=== PATIENT | male | born 1945 | race American Indian/Alaskan Native ===

== ENCOUNTER 2018-11-07 23:42 | Emergency (ER) | payer MEDICARE, BC ==
[~2018-11-07] VITALS: Ht 172.7 cm; Wt 103.9 kg
[~2018-11-07 23:42] MED LIST: ALPR.5 PO; AMLO5 PO; ANDROGEL1.25 GM TOP; ANDROGEL2.5 GM; ASPI81CH PO; Acidophilus La100 GM PO; B-121000 MC2 PO; BENZ100A PO; Bystolic5 MG PO; CEFP200 PO; CENTRUM SILVER1 EAC2 PO; CLOP75; CYCL10 PO; Calicum 500+D1 EACH PO; FENO160 PO; FISH1000 PO; FLUSAL2505 INH; GABA100 PO; HYDACE5325 PO; Hair, Skin & N1 EACH PO; IBUP600 PO; ISOMON20; LEVSOD50 PO; LISI5; Mirapex0.25 MG PO; OLME20-12. PO; OMEP20ER PO; OSTERA TABLET1 EACH PO; OXYB5ER PO; PANT20; PIME1CR TOP; PRAM.5 PO; Synthroid50 MCG; TRAZ50 PO; VENL150ER PO; [UNRECOGNIZED DRUG - OTHER] PO
== END 2018-11-08 02:00 | disposition home or self-care (01) ==
LOC: ER 23:42
DX: R04.0 Epistaxis (principal); Z88.0 Allergy status to penicillin; Z88.8 Allergy status to other drugs, medicaments and biological substances; Z79.899 Other long term (current) drug therapy; I10 Essential (primary) hypertension; I25.10 Atherosclerotic heart disease of native coronary artery without angina pectoris; Z87.891 Personal history of nicotine dependence
CPT/HCPCS: 99283

== ENCOUNTER 2019-03-09 09:05 | Emergency (ER) | payer MEDICARE, BC ==
[~2019-03-09] VITALS: Ht 172.7 cm; Wt 102.1 kg
[2019-03-09 09:34] LABS: BASOPHILS ABSOLUTE AUTO 0.06 K/mm3 (0.00-0.23); BASOPHILS PERCENT AUTO 1 % (0-2); EOSINOPHILS PERCENT AUTO 0 % (0-6); Hematocrit 37.2 % (37.0-53.0); Hemoglobin 12.1 g/dL (13.5-17.5); IMMATURE GRAN ABSOLUTE AUTO 0.01 K/mm3 (0.00-0.10); IMMATURE GRAN PERCENT AUTO 0 % (0-1); LYMPHOCYTES ABSOLUTE AUTO 1.44 K/mm3 (0.84-5.20); LYMPHOCYTES PERCENT AUTO 22 % (21-46); MONOCYTES PERCENT AUTO 11 % (4-13); Mean Corpuscular HGB 30.5 pg (26.0-34.0); Mean Corpuscular HGB Conc 32.5 g/dL (31.5-36.5); Mean Corpuscular Volume 94 fL (80-100); Mean Platelet Volume 10.4 fL (9.1-12.4); NEUTROPHILS ABSOLUTE AUTO 4.22 K/mm3 (1.96-9.15); NEUTROPHILS PERCENT AUTO 66 % (41-73); Platelet Count 113 K/mm3 (150-400); RDW Coefficient Variation 12.4 % (11.7-14.2); Red Blood Cell Count 3.97 M/mm3 (4.30-5.90); White Blood Cell Count 6.43 K/mm3 (4.00-11.30)
[2019-03-09 09:48] LABS: Alanine Aminotransfer (ALT/SGP 22 U/L (12-78); Albumin, Blood 3.4 g/dL (3.4-5.0); Alk Phos 79 U/L (50-136); Anion Gap 2 mmol/L (6-16); Aspartate Aminotrans (AST/SGOT 15 U/L (12-37); Bilirubin, Total 0.3 mg/dL (0.1-1.0); Blood Urea Nitrogen 15 mg/dL (8-24); Bun/Creatinine Ratio 18.7 (12.0-20.0); CO2, Blood 32 mmol/L (21-32); Chloride, Blood 106 mmol/L (98-108); Globulin, Blood 3.4 g/dL (2.2-4.0); Glomerular Filtration Rate >60 (60-); Glucose, Blood 175 mg/dL (70-99); Sodium, Blood 140 mmol/L (136-145); Total Protein, Blood 6.8 g/dL (6.4-8.2); Troponin I <0.015 ng/mL (0.000-0.040)
[2019-03-09] MEDS ORDERED: MAGNESIUM OXID500 MG PO (10:57)
== END 2019-03-09 11:56 | disposition home or self-care (01) ==
LOC: ER 09:05
PROVIDERS: Emergency Medicine
DX: R00.2 Palpitations (principal); E83.42 Hypomagnesemia; I10 Essential (primary) hypertension; I25.10 Atherosclerotic heart disease of native coronary artery without angina pectoris; Z87.891 Personal history of nicotine dependence; Z88.0 Allergy status to penicillin; Z88.8 Allergy status to other drugs, medicaments and biological substances; Z79.899 Other long term (current) drug therapy; Z79.02 Long term (current) use of antithrombotics/antiplatelets
CPT/HCPCS: 71046; 80053; 83735; 84484; 85025; 93005; 93010; 93225; 93226; 96365; 99285-25; J3475

== ENCOUNTER 2019-05-08 19:12 | Observation (INO) | payer MEDICARE, BC ==
[~2019-05-08] VITALS: Ht 172.7 cm; Wt 100.0 kg
[~2019-05-08 19:12] MED LIST changes: +MAGNESIUM OXID500 MG PO
[2019-05-08 20:04] LABS: BASOPHILS ABSOLUTE AUTO 0.06 K/mm3 (0.00-0.23); BASOPHILS PERCENT AUTO 1 % (0-2); EOSINOPHILS PERCENT AUTO 0 % (0-6); Hematocrit 40.4 % (37.0-53.0); Hemoglobin 13.1 g/dL (13.5-17.5); IMMATURE GRAN ABSOLUTE AUTO 0.06 K/mm3 (0.00-0.10); IMMATURE GRAN PERCENT AUTO 1 % (0-1); LYMPHOCYTES ABSOLUTE AUTO 1.47 K/mm3 (0.84-5.20); LYMPHOCYTES PERCENT AUTO 19 % (21-46); MONOCYTES ABSOLUTE AUTO 0.58 K/mm3 (0.16-1.47); MONOCYTES PERCENT AUTO 8 % (4-13); Mean Corpuscular HGB 31.3 pg (26.0-34.0); Mean Corpuscular HGB Conc 32.4 g/dL (31.5-36.5); Mean Corpuscular Volume 97 fL (80-100); Mean Platelet Volume 10.3 fL (9.1-12.4); NEUTROPHILS ABSOLUTE AUTO 5.46 K/mm3 (1.96-9.15); NEUTROPHILS PERCENT AUTO 72 % (41-73); Platelet Count 113 K/mm3 (150-400); RDW Coefficient Variation 12.3 % (11.7-14.2); RDW Standard Deviation 43.5 fL (35.1-46.3); Red Blood Cell Count 4.18 M/mm3 (4.30-5.90); White Blood Cell Count 7.63 K/mm3 (4.00-11.30)
[2019-05-08 20:16] LABS: International Normalized Ratio 0.98; Prothrombin Time Results 10.4 Sec (9.7-11.5)
[2019-05-08 20:22] LABS: Alanine Aminotransfer (ALT/SGP 25 U/L (12-78); Albumin, Blood 3.8 g/dL (3.4-5.0); Albumin/Globulin Ratio 1.1 (0.8-1.8); Alk Phos 79 U/L (50-136); Anion Gap 5 mmol/L (6-16); Aspartate Aminotrans (AST/SGOT 17 U/L (12-37); Bilirubin, Total 0.4 mg/dL (0.1-1.0); Blood Urea Nitrogen 28 mg/dL (8-24); Bun/Creatinine Ratio 27.2 (12.0-20.0); CO2, Blood 26 mmol/L (21-32); Calcium, Blood 8.9 mg/dL (8.5-10.1); Chloride, Blood 107 mmol/L (98-108); Creatinine, Blood 1.03 mg/dL (0.60-1.20); Globulin, Blood 3.6 g/dL (2.2-4.0); Glomerular Filtration Rate >60 (60-); Glucose, Blood 182 mg/dL (70-99); Potassium, Blood 4.5 mmol/L (3.5-5.5); Sodium, Blood 138 mmol/L (136-145); Total Protein, Blood 7.4 g/dL (6.4-8.2)
--- NOTE | 2019-05-09 04:06 | NUR ---
SHIFT SUMMARY PT ARRIVED TO ROOM IN NO DISTRESS. PT HAS NO ISSUES OR COMPLAINTS. PT HAS NO NOTED NEURO DEFICITS DURING ASSESSMENT. PT IS CURRENTLY SLEEPING W/ CPAP AND BREATHING EASY. CALL LIGHT IN REACH.
[2019-05-09 05:05] LABS: BASOPHILS ABSOLUTE AUTO 0.04 K/mm3 (0.00-0.23); BASOPHILS PERCENT AUTO 1 % (0-2); EOSINOPHILS PERCENT AUTO 0 % (0-6); Hematocrit 37.2 % (37.0-53.0); Hemoglobin 12.1 g/dL (13.5-17.5); IMMATURE GRAN ABSOLUTE AUTO 0.05 K/mm3 (0.00-0.10); IMMATURE GRAN PERCENT AUTO 1 % (0-1); LYMPHOCYTES ABSOLUTE AUTO 1.92 K/mm3 (0.84-5.20); LYMPHOCYTES PERCENT AUTO 28 % (21-46); MONOCYTES ABSOLUTE AUTO 0.65 K/mm3 (0.16-1.47); MONOCYTES PERCENT AUTO 10 % (4-13); Mean Corpuscular HGB 30.3 pg (26.0-34.0); Mean Corpuscular HGB Conc 32.5 g/dL (31.5-36.5); Mean Platelet Volume 10.4 fL (9.1-12.4); NEUTROPHILS ABSOLUTE AUTO 4.18 K/mm3 (1.96-9.15); NEUTROPHILS PERCENT AUTO 61 % (41-73); Platelet Count 96 K/mm3 (150-400); RDW Coefficient Variation 12.3 % (11.7-14.2); RDW Standard Deviation 42.3 fL (35.1-46.3); Red Blood Cell Count 3.99 M/mm3 (4.30-5.90); White Blood Cell Count 6.84 K/mm3 (4.00-11.30)
[2019-05-09 05:15] LABS: Mean Corpuscular Volume 93 fL (80-100)
[2019-05-09 05:26] LABS: Anion Gap 6 mmol/L (6-16); Blood Urea Nitrogen 28 mg/dL (8-24); Bun/Creatinine Ratio 25.9 (12.0-20.0); CHOL/HDL RATIO 4.9; CO2, Blood 27 mmol/L (21-32); Calcium, Blood 8.8 mg/dL (8.5-10.1); Chloride, Blood 108 mmol/L (98-108); Cholesterol 161 mg/dL (50-200); Creatinine, Blood 1.08 mg/dL (0.60-1.20); Glomerular Filtration Rate >60 (60-); Glucose, Blood 115 mg/dL (70-99); HDL Cholesterol 33 mg/dL (>39); LDL/HDL RATIO 2.2; Low Density Lipoprotein Chol 74 mg/dL (0-110); Potassium, Blood 3.8 mmol/L (3.5-5.5); Sodium, Blood 141 mmol/L (136-145); Triglycerides 271 mg/dL (30-160); Very Low Density Lipoprot Chol 54 mg/dL (6-32)
[2019-05-09] MEDS ORDERED: ATOR40TA PO (12:12)
== END 2019-05-09 12:55 | disposition home or self-care (01) ==
LOC: ER 19:12 → MEDS 19:13 → ENPENDDIS 05-09 12:45 → MEDS 05-09 12:55
PROVIDERS: Nurse Practitioner Acute Care; Physician Assistant; ADMIT Hospitalist
DX: G45.9 Transient cerebral ischemic attack, unspecified (principal); I10 Essential (primary) hypertension; I25.10 Atherosclerotic heart disease of native coronary artery without angina pectoris; J43.9 Emphysema, unspecified; E78.5 Hyperlipidemia, unspecified; E11.9 Type 2 diabetes mellitus without complications; J61 Pneumoconiosis due to asbestos and other mineral fibers; E03.9 Hypothyroidism, unspecified; Z90.49 Acquired absence of other specified parts of digestive tract; Z96.642 Presence of left artificial hip joint; Z87.891 Personal history of nicotine dependence; Z88.0 Allergy status to penicillin; Z88.6 Allergy status to analgesic agent; Z79.02 Long term (current) use of antithrombotics/antiplatelets; Z79.899 Other long term (current) drug therapy
CPT/HCPCS: 36415; 70450; 70496; 70498; 70551; 80048; 80053; 80061; 82947; 85025; 85610; 93005; 93010; 94660; 94762; 96374; 97110; 97161; 99285-25; C9113; G0378; Q9967

== ENCOUNTER 2019-06-17 05:40 | Emergency (ER) | payer MEDICARE, BC ==
[~2019-06-17] VITALS: Ht 172.7 cm; Wt 99.8 kg
[~2019-06-17 05:40] MED LIST changes: +ATOR40TA PO
[2019-06-17 05:58] LABS: BASOPHILS ABSOLUTE AUTO 0.06 K/mm3 (0.00-0.23); BASOPHILS PERCENT AUTO 1 % (0-2); EOSINOPHILS PERCENT AUTO 0 % (0-6); Hematocrit 38.5 % (37.0-53.0); Hemoglobin 12.7 g/dL (13.5-17.5); IMMATURE GRAN ABSOLUTE AUTO 0.04 K/mm3 (0.00-0.10); IMMATURE GRAN PERCENT AUTO 1 % (0-1); LYMPHOCYTES ABSOLUTE AUTO 1.87 K/mm3 (0.84-5.20); LYMPHOCYTES PERCENT AUTO 24 % (21-46); MONOCYTES ABSOLUTE AUTO 0.64 K/mm3 (0.16-1.47); MONOCYTES PERCENT AUTO 8 % (4-13); Mean Corpuscular HGB 30.7 pg (26.0-34.0); Mean Corpuscular Volume 93 fL (80-100); Mean Platelet Volume 10.1 fL (9.1-12.4); NEUTROPHILS ABSOLUTE AUTO 5.28 K/mm3 (1.96-9.15); NEUTROPHILS PERCENT AUTO 67 % (41-73); Platelet Count 119 K/mm3 (150-400); RDW Coefficient Variation 12.4 % (11.7-14.2); RDW Standard Deviation 42.7 fL (35.1-46.3); Red Blood Cell Count 4.14 M/mm3 (4.30-5.90); White Blood Cell Count 7.89 K/mm3 (4.00-11.30)
[2019-06-17] MEDS ORDERED: ESBRIET801 MG PO (05:59)
[2019-06-17] MEDS ORDERED: GABA300 PO (06:00)
[2019-06-17] MEDS ORDERED: METF500 PO (06:01)
[2019-06-17] MEDS ORDERED: NEBI10 PO (06:01)
[2019-06-17] MEDS ORDERED: OLMESARTAN-HCT1 EACH PO (06:02)
[2019-06-17] MEDS ORDERED: CLOP75 PO (06:03)
[2019-06-17] MEDS ORDERED: EUTHYROX100 MCG PO (06:04)
[2019-06-17] MEDS ORDERED: PANT40 PO (06:04)
[2019-06-17] MEDS ORDERED: HYDCOR10 PO (06:05)
[2019-06-17] MEDS ORDERED: TRAZ50 PO (06:06)
[2019-06-17] MEDS ORDERED: ATOR20 PO (06:06)
[2019-06-17] MEDS ORDERED: PRAMIPEXOLE D0.25 MG PO (06:07)
[2019-06-17] MEDS ORDERED: HYDR1TAB94 PO (06:07)
[2019-06-17] MEDS ORDERED: Ventolin/Prove6.7 GM INH (06:09)
[2019-06-17] MEDS ORDERED: ANORO ELLIPTA1 EACH INH (06:09)
[2019-06-17] MEDS ORDERED: Vitamin D2000 UNIT PO (06:09)
[2019-06-17 06:21] LABS: Alanine Aminotransfer (ALT/SGP 44 U/L (12-78); Albumin, Blood 3.5 g/dL (3.4-5.0); Alk Phos 96 U/L (50-136); Anion Gap 4 mmol/L (6-16); Aspartate Aminotrans (AST/SGOT 18 U/L (12-37); Bilirubin, Total 0.3 mg/dL (0.1-1.0); Blood Urea Nitrogen 23 mg/dL (8-24); Bun/Creatinine Ratio 24.6 (12.0-20.0); CO2, Blood 29 mmol/L (21-32); Calcium, Blood 8.6 mg/dL (8.5-10.1); Chloride, Blood 106 mmol/L (98-108); Creatinine, Blood 0.93 mg/dL (0.60-1.20); Globulin, Blood 3.6 g/dL (2.2-4.0); Glomerular Filtration Rate >60 (60-); Glucose, Blood 260 mg/dL (70-99); Magnesium, Blood 1.5 mg/dL (1.6-2.4); Potassium, Blood 3.7 mmol/L (3.5-5.5); Sodium, Blood 139 mmol/L (136-145); Total Protein, Blood 7.1 g/dL (6.4-8.2); Troponin I <0.015 ng/mL (0.000-0.040)
[2019-06-17 07:42] LABS: Source, Urine Voided
[2019-06-17 07:45] LABS: Bilirubin, Urine Neg (Neg); Blood, Urine 1+ (Neg); Glucose Qualitative, Urine 3+ (Neg); Ketones, Urine Neg (Neg); Leukocyte Esterase, Urine 3+ (Neg); Nitrite, Urine Pos (Neg); Protein, Urine 2+ (Neg); Urobilinogen, Urine NORM (Normal)
[2019-06-17 07:54] LABS: Appearance, Urine Cloudy (Clear); Color, Urine Yellow (P-Yellow)
[2019-06-17 07:56] LABS: White Blood Cells, Urine 25-50 /hpf (0-5)
[2019-06-17 07:57] LABS: Bacteria Many /hpf; Squamous Epithelial Cells Rare /hpf (Few); Transitional Epithelial Cells Few /hpf (0-Rare)
[2019-06-17 07:58] LABS: Creatine Kinase MB Index 1.7 (0.0-4.0)
[2019-06-17 08:00] LABS: Thyroid Stimulating Hormone 3.58 uIU/mL (0.360-4.800)
[2019-06-17] MEDS ORDERED: CEFD300 PO (10:31)
== END 2019-06-17 10:45 | disposition home or self-care (01) ==
LOC: ER 05:40
PROVIDERS: Emergency Medicine
DX: R55 Syncope and collapse (principal); J44.9 Chronic obstructive pulmonary disease, unspecified; N39.0 Urinary tract infection, site not specified; R53.1 Weakness; I10 Essential (primary) hypertension; I25.10 Atherosclerotic heart disease of native coronary artery without angina pectoris; Z99.81 Dependence on supplemental oxygen; Z88.0 Allergy status to penicillin; Z88.8 Allergy status to other drugs, medicaments and biological substances; Z79.84 Long term (current) use of oral hypoglycemic drugs; Z79.899 Other long term (current) drug therapy; Z87.891 Personal history of nicotine dependence
CPT/HCPCS: 36415; 71046; 80053; 81001; 82550; 82553; 83735; 83880; 84443; 84484; 85025; 87077; 87086; 87186; 93005; 93010; 96365; 99284-25; J0696

== ENCOUNTER → 2019-08-15 | Outpatient (CLI) | payer MEDICARE, BC ==
[~2019-08-15] MED LIST changes: +ANORO ELLIPTA1 EACH INH; +ATOR20 PO; +CEFD300 PO; +CLOP75 PO; +ESBRIET801 MG PO; +EUTHYROX100 MCG PO; +GABA300 PO; +HYDCOR10 PO; +HYDR1TAB94 PO; +METF500 PO; +NEBI10 PO; +OLMESARTAN-HCT1 EACH PO; +PANT40 PO; +PRAMIPEXOLE D0.25 MG PO; +Ventolin/Prove6.7 GM INH; +Vitamin D2000 UNIT PO
[2019-08-15 16:26] LABS: Source, Urine Clean Catch
[2019-08-15 17:26] LABS: Bilirubin, Urine Neg (Neg); Blood, Urine 4+ (Neg); Glucose Qualitative, Urine Neg (Neg); Ketones, Urine 1+ (Neg); Leukocyte Esterase, Urine 3+ (Neg); Nitrite, Urine Neg (Neg); Protein, Urine 3+ (Neg); Urobilinogen, Urine NORM (Normal)
[2019-08-15 17:50] LABS: Appearance, Urine Cloudy (Clear); Color, Urine Yellow (P-Yellow)
[2019-08-15 17:51] LABS: Red Blood Cells, Urine 25-50 /hpf (0-2); White Blood Cells, Urine TNTC /hpf (0-5); Yeast/Fungi Urine Many /hpf
[2019-08-15 17:52] LABS: Bacteria Many /hpf; Squamous Epithelial Cells Few /hpf (Few)
== END | disposition home or self-care (01) ==
LOC: OLS 16:25 → LAB SHORT 16:25 → LAB FUT 06-27 18:35
PROVIDERS: Urology
DX: N39.0 Urinary tract infection, site not specified (principal)
CPT/HCPCS: 81001

== ENCOUNTER 2020-04-28 10:09 | Emergency (ER) | payer MEDICARE, BC ==
[~2020-04-28] VITALS: Ht 172.7 cm; Wt 95.2 kg
[2020-04-28 10:48] LABS: BASOPHILS ABSOLUTE AUTO 0.04 K/mm3 (0.00-0.23); BASOPHILS PERCENT AUTO 1 % (0-2); EOSINOPHILS PERCENT AUTO 0 % (0-6); Hematocrit 36.1 % (37.0-53.0); Hemoglobin 11.5 g/dL (13.5-17.5); IMMATURE GRAN ABSOLUTE AUTO 0.08 K/mm3 (0.00-0.10); IMMATURE GRAN PERCENT AUTO 1 % (0-1); LYMPHOCYTES ABSOLUTE AUTO 1.55 K/mm3 (0.84-5.20); LYMPHOCYTES PERCENT AUTO 19 % (21-46); MONOCYTES ABSOLUTE AUTO 0.66 K/mm3 (0.16-1.47); MONOCYTES PERCENT AUTO 8 % (4-13); Mean Corpuscular HGB 29.9 pg (26.0-34.0); Mean Corpuscular HGB Conc 31.9 g/dL (31.5-36.5); Mean Corpuscular Volume 94 fL (80-100); Mean Platelet Volume 9.5 fL (9.1-12.4); NEUTROPHILS ABSOLUTE AUTO 5.66 K/mm3 (1.96-9.15); NEUTROPHILS PERCENT AUTO 71 % (41-73); Platelet Count 105 K/mm3 (150-400); RDW Coefficient Variation 12.4 % (11.7-14.2); RDW Standard Deviation 42.4 fL (35.1-46.3); Red Blood Cell Count 3.85 M/mm3 (4.30-5.90); White Blood Cell Count 7.99 K/mm3 (4.00-11.30)
[2020-04-28 11:18] LABS: Alanine Aminotransfer (ALT/SGP 28 U/L (12-78); Albumin, Blood 3.4 g/dL (3.4-5.0); Albumin/Globulin Ratio 1.1 (0.8-1.8); Alk Phos 89 U/L (50-136); Anion Gap 4 mmol/L (6-16); Aspartate Aminotrans (AST/SGOT 26 U/L (12-37); Bilirubin, Total 0.2 mg/dL (0.1-1.0); Blood Urea Nitrogen 24 mg/dL (8-24); Bun/Creatinine Ratio 23.3 (12.0-20.0); CO2, Blood 32 mmol/L (21-32); Calcium, Blood 8.8 mg/dL (8.5-10.1); Chloride, Blood 107 mmol/L (98-108); Creatinine, Blood 1.03 mg/dL (0.60-1.20); Globulin, Blood 3.2 g/dL (2.2-4.0); Glomerular Filtration Rate >60 (60-); Glucose, Blood 90 mg/dL (70-99); Potassium, Blood 4.3 mmol/L (3.5-5.5); Sodium, Blood 143 mmol/L (136-145); Total Protein, Blood 6.6 g/dL (6.4-8.2); Troponin I <0.015 ng/mL (0.000-0.040)
== END 2020-04-28 14:25 | disposition home or self-care (01) ==
LOC: ER 10:09
PROVIDERS: Emergency Medicine
DX: R53.1 Weakness (principal); J84.10 Pulmonary fibrosis, unspecified; I10 Essential (primary) hypertension; I25.10 Atherosclerotic heart disease of native coronary artery without angina pectoris; F43.9 Reaction to severe stress, unspecified; Z79.84 Long term (current) use of oral hypoglycemic drugs; Z79.02 Long term (current) use of antithrombotics/antiplatelets; Z88.0 Allergy status to penicillin; Z88.6 Allergy status to analgesic agent; Z79.899 Other long term (current) drug therapy; Z87.891 Personal history of nicotine dependence
CPT/HCPCS: 36415; 71046; 80053; 84484; 85025; 93005; 93010; 99285-25

== ENCOUNTER → 2020-05-05 | Outpatient (CLI) | payer MEDICARE, BC ==
[2020-05-07 22:42] LABS: Stool Occult Bld Immuno 1 Negative (NEGATIVE)
== END ==
LOC: LAB 16:30 → LAB SHORT 16:30
PROVIDERS: Family Medicine
DX: D64.9 Anemia, unspecified (principal)
CPT/HCPCS: 82274

== ENCOUNTER 2021-01-16 02:32 | Inpatient (IN) | payer MEDICARE, BC ==
[~2021-01-16] VITALS: Ht 172.7 cm; Wt 96.2 kg
[~2021-01-16 02:32] MED LIST changes: -CLOP75; -ESBRIET801 MG PO; -METF500 PO; -PRAMIPEXOLE D0.25 MG PO; -VENL150ER PO
[2021-01-16 03:00] LABS: Source, Urine Clean Catch
[2021-01-16 03:02] LABS: Bilirubin, Urine Neg (Neg); Blood, Urine 3+ (Neg); Glucose Qualitative, Urine 4+ (Neg); Ketones, Urine Neg (Neg); Leukocyte Esterase, Urine 1+ (Neg); Nitrite, Urine Pos (Neg); Protein, Urine 4+ (Neg); Specific Gravity, Urine 1.015 (1.003-1.022); Urobilinogen, Urine NORM (Normal)
[2021-01-16 03:02] LABS: BASOPHILS ABSOLUTE AUTO 0.03 K/mm3 (0.00-0.23); BASOPHILS PERCENT AUTO 0 % (0-2); EOSINOPHILS PERCENT AUTO 0 % (0-6); Hematocrit 42.4 % (37.0-53.0); Hemoglobin 13.6 g/dL (13.5-17.5); IMMATURE GRAN ABSOLUTE AUTO 0.04 K/mm3 (0.00-0.10); IMMATURE GRAN PERCENT AUTO 0 % (0-1); LYMPHOCYTES PERCENT AUTO 5 % (21-46); MONOCYTES ABSOLUTE AUTO 0.74 K/mm3 (0.16-1.47); MONOCYTES PERCENT AUTO 7 % (4-13); Mean Corpuscular HGB 28.9 pg (26.0-34.0); Mean Corpuscular HGB Conc 32.1 g/dL (31.5-36.5); Mean Corpuscular Volume 90 fL (80-100); Mean Platelet Volume 9.9 fL (9.1-12.4); NEUTROPHILS PERCENT AUTO 87 % (41-73); Platelet Count 103 K/mm3 (150-400); RDW Coefficient Variation 13.2 % (11.7-14.2); RDW Standard Deviation 43.6 fL (35.1-46.3); Red Blood Cell Count 4.71 M/mm3 (4.30-5.90); White Blood Cell Count 10.41 K/mm3 (4.00-11.30)
[2021-01-16 03:04] LABS: Appearance, Urine Clear (Clear); Color, Urine Yellow (P-Yellow)
[2021-01-16 03:08] LABS: White Blood Cells, Urine 50-100 /hpf (0-5)
[2021-01-16 03:09] LABS: Bacteria Many /hpf; Squamous Epithelial Cells Few /hpf (Few)
[2021-01-16 03:14] LABS: Alanine Aminotransfer (ALT/SGP 23 U/L (12-78); Albumin, Blood 3.6 g/dL (3.4-5.0); Albumin/Globulin Ratio 0.9 (0.8-1.8); Alk Phos 109 U/L (50-136); Anion Gap 3 mmol/L (6-16); Aspartate Aminotrans (AST/SGOT 11 U/L (12-37); Bilirubin, Total 0.4 mg/dL (0.1-1.0); Blood Urea Nitrogen 17 mg/dL (8-24); Bun/Creatinine Ratio 18.2 (12.0-20.0); CO2, Blood 31 mmol/L (21-32); Calcium, Blood 9.3 mg/dL (8.5-10.1); Chloride, Blood 105 mmol/L (98-108); Creatinine, Blood 0.93 mg/dL (0.60-1.20); Globulin, Blood 4.1 g/dL (2.2-4.0); Glomerular Filtration Rate >60 (60-); Glucose, Blood 286 mg/dL (70-99); Potassium, Blood 4.1 mmol/L (3.5-5.5); Sodium, Blood 139 mmol/L (136-145); Total Protein, Blood 7.7 g/dL (6.4-8.2)
[2021-01-16] MEDS ORDERED: TAMSULOSIN HCL0.4 M1 PO (04:01)
[2021-01-16] MEDS ORDERED: METF500C PO (04:02)
[2021-01-16 05:08] LABS: SARS-Cov-2 (COVID-19) PCR, MMC NEGATIVE (NEGATIVE)
[2021-01-16] MEDS ORDERED: HYDCOR10 PO (11:50)
[2021-01-16] MEDS ORDERED: HYDR1TAB94 PO (14:53)
--- NOTE | 2021-01-16 16:48 | NUR ---
ADMISSION AND SHIFT SUMMARY PT ARRIVED TO UNIT @ APPROX 1335 VIA WHEELCHAIR, PT ABLE TO AMBULATE TO BED c MINIMAL ASSISTANCE. PT A&Ox3, FORGETFUL OF WHICH TOWN HE WAS IN BUT KNEW HE WAS IN A HOSPITAL. ADMIT COMPLETED, PRESENT AT THIS TIME TO HELP PROVIDE ACURATE INFORMATION. BED ALARM ON DUE TO FORGETFULNESS, PT HAS CALLED APPROPRIATELY SINCE ARRIVAL TO UNIT. LR RUNNING @ 75 ML/HR. DENIES ANY DISTRESS AT THIS TIME. STILL HAVING FREQUENT URINATION, NO EPISODES OF INONTINENCE. TO BRING IN HOME cPAP AND ADVANCE DIRECTIVE TOMORROW. PT IS CURRENTLY SLEEPING IN BED, WITH CALL LIGHT WITHIN REACH AND BED ALARM ON.
[2021-01-17 06:03] LABS: BASOPHILS ABSOLUTE AUTO 0.04 K/mm3 (0.00-0.23); BASOPHILS PERCENT AUTO 1 % (0-2); EOSINOPHILS PERCENT AUTO 0 % (0-6); Hematocrit 43.7 % (37.0-53.0); Hemoglobin 13.9 g/dL (13.5-17.5); IMMATURE GRAN ABSOLUTE AUTO 0.04 K/mm3 (0.00-0.10); IMMATURE GRAN PERCENT AUTO 1 % (0-1); LYMPHOCYTES ABSOLUTE AUTO 0.75 K/mm3 (0.84-5.20); LYMPHOCYTES PERCENT AUTO 9 % (21-46); MONOCYTES ABSOLUTE AUTO 0.64 K/mm3 (0.16-1.47); MONOCYTES PERCENT AUTO 7 % (4-13); Mean Corpuscular HGB 28.7 pg (26.0-34.0); Mean Corpuscular HGB Conc 31.8 g/dL (31.5-36.5); Mean Corpuscular Volume 90 fL (80-100); Mean Platelet Volume 10.2 fL (9.1-12.4); NEUTROPHILS ABSOLUTE AUTO 7.25 K/mm3 (1.96-9.15); NEUTROPHILS PERCENT AUTO 83 % (41-73); Platelet Count 98 K/mm3 (150-400); RDW Coefficient Variation 13.5 % (11.7-14.2); RDW Standard Deviation 45.1 fL (35.1-46.3); Red Blood Cell Count 4.84 M/mm3 (4.30-5.90); White Blood Cell Count 8.72 K/mm3 (4.00-11.30)
[2021-01-17 06:21] LABS: Alanine Aminotransfer (ALT/SGP 23 U/L (12-78); Albumin, Blood 3.3 g/dL (3.4-5.0); Albumin/Globulin Ratio 0.8 (0.8-1.8); Alk Phos 98 U/L (50-136); Anion Gap 6 mmol/L (6-16); Aspartate Aminotrans (AST/SGOT 14 U/L (12-37); Bilirubin, Total 0.5 mg/dL (0.1-1.0); Blood Urea Nitrogen 17 mg/dL (8-24); CO2, Blood 30 mmol/L (21-32); Calcium, Blood 9.2 mg/dL (8.5-10.1); Chloride, Blood 99 mmol/L (98-108); Creatinine, Blood 1.06 mg/dL (0.60-1.20); Globulin, Blood 4.3 g/dL (2.2-4.0); Glomerular Filtration Rate >60 (60-); Glucose, Blood 140 mg/dL (70-99); Magnesium, Blood 1.8 mg/dL (1.6-2.4); Phosphorus, Blood 2.5 mg/dL (2.5-4.9); Potassium, Blood 3.9 mmol/L (3.5-5.5); Sodium, Blood 135 mmol/L (136-145); Total Protein, Blood 7.6 g/dL (6.4-8.2)
--- NOTE | 2021-01-17 06:36 | NUR ---
PT RESTING IN BED, ORIENTED X4 MAKING NO COMPLAINTS AT THIS TIME. ONE TIME ORDER FOR TYLENOL RECEIVED ON NOC SHIFT TO TREAT HEAD ACHE. NO OTHER CHANGES NOTED. STAFF WILL CONTINUE TO MONITOR.
--- NOTE | 2021-01-17 17:37 | NUR ---
SHIFT SUMMARY PT DENIES ANY DISTRESS T/O SHIFT, A&Ox3, CALM AND COOPERATIVE c CARE. FEVER WAS NOTED THIS AM BUT IS NOW WNL W/O ANY PHARMALOGICAL INTERVENTIONS. POSSIBLE DC TOMORROW. BROUGHT IN PT HOME cPAP TODAY. VSS. PT IS STILL IMPULSIVE AND GETS UP OUT OF BED W/O ASSISTANCE. BED ALARM ON. PT IS CURRENTLY RESTING IN BED c CALL LIGHT WITHIN REACH.
--- NOTE | 2021-01-18 00:02 | NUR ---
AWAKE WATCHING TV. ASSISTED TO BATHROOM EARLIER TO VOID. IVF OF LR CONTINUSE AT 75 ML/HR. NO C/O PAIN. NO NOTED S/S OF ACUTE DISTRESS AT THIS TIME. O2 PER NC. CALL LIGHT IN REACH
--- NOTE | 2021-01-18 04:50 | NUR ---
MACHINE WOODWORKING SANDER SUMMARY AWAKE AT INTERVALS TO GO TO THE BATHROOM, AND WHEN IV PUMP AND O2 SAT PULSE OX BEEPING. IV SITE ASSESSED, ARM BOARD PLACED. AND INSTRUCTED TO TAKE DEEP BREATHS WHEN O2 ALARMED. O2 SATS BACK TO 90'S AND CALL LIGHT IN REACH. IVF INFUSING. SEE MAR FOR DETAILS.
[2021-01-18 10:00] LABS: Alanine Aminotransfer (ALT/SGP 24 U/L (12-78); Albumin, Blood 2.7 g/dL (3.4-5.0); Albumin/Globulin Ratio 0.8 (0.8-1.8); Alk Phos 72 U/L (50-136); Anion Gap 3 mmol/L (6-16); Aspartate Aminotrans (AST/SGOT 21 U/L (12-37); Bilirubin, Total 0.3 mg/dL (0.1-1.0); Blood Urea Nitrogen 15 mg/dL (8-24); Bun/Creatinine Ratio 17.8 (12.0-20.0); CO2, Blood 31 mmol/L (21-32); Calcium, Blood 8.4 mg/dL (8.5-10.1); Chloride, Blood 101 mmol/L (98-108); Creatinine, Blood 0.85 mg/dL (0.60-1.20); Globulin, Blood 3.5 g/dL (2.2-4.0); Glomerular Filtration Rate >60 (60-); Glucose, Blood 201 mg/dL (70-99); Potassium, Blood 3.8 mmol/L (3.5-5.5); Sodium, Blood 135 mmol/L (136-145); Total Protein, Blood 6.2 g/dL (6.4-8.2)
[2021-01-18] MEDS ORDERED: CEFD300 PO (15:27)
[2021-01-18] MEDS ORDERED: VISBIOME 112.51 EACH PO (15:28)
--- NOTE | 2021-01-18 16:15 | NUR ---
DISCHARGE MEDICATIONS AND INSTRUCTIONS EXPLAINED TO PATIENT AND PATIENT'S . THEY STATED UNDERSTANDING. PCP FOLLOW UP SCHEDULED. IV REMOVED WITHOUT ISSUE. BELONGINGS WITH PATIENT. PATIENT TRANSFERRED TO PRIVATE VEHICLE VIA WHEELCHAIR.
== END 2021-01-18 16:03 | disposition home or self-care (01) | DRG 871 ==
LOC: ER 02:32 → ERHOLD 03:41 → MEDS 13:34
PROVIDERS: Emergency Medicine; Hospitalist; Internal Medicine Endocrinology, Diabetes & Metabolism; ADMIT Family Medicine
DX: A41.51 Sepsis due to Escherichia coli [E. coli] (principal); G92 Toxic encephalopathy; Z16.10 Resistance to unspecified beta lactam antibiotics; Z16.23 Resistance to quinolones and fluoroquinolones; N39.0 Urinary tract infection, site not specified; E27.40 Unspecified adrenocortical insufficiency; I25.10 Atherosclerotic heart disease of native coronary artery without angina pectoris; Z20.822 Contact with and (suspected) exposure to COVID-19; D69.59 Other secondary thrombocytopenia; J84.112 Idiopathic pulmonary fibrosis; K21.9 Gastro-esophageal reflux disease without esophagitis; E03.9 Hypothyroidism, unspecified; E78.5 Hyperlipidemia, unspecified; Z96.642 Presence of left artificial hip joint; G47.33 Obstructive sleep apnea (adult) (pediatric); G89.29 Other chronic pain; E66.9 Obesity, unspecified; M48.00 Spinal stenosis, site unspecified; E83.42 Hypomagnesemia; E11.22 Type 2 diabetes mellitus with diabetic chronic kidney disease; D63.1 Anemia in chronic kidney disease; I12.9 Hypertensive chronic kidney disease with stage 1 through stage 4 chronic kidney disease, or unspecified chronic kidney disease; N18.9 Chronic kidney disease, unspecified; J43.9 Emphysema, unspecified; Z77.090 Contact with and (suspected) exposure to asbestos; Z87.891 Personal history of nicotine dependence; Z88.0 Allergy status to penicillin; Z88.6 Allergy status to analgesic agent; Z98.890 Other specified postprocedural states; Z79.02 Long term (current) use of antithrombotics/antiplatelets; Z79.899 Other long term (current) drug therapy; Z79.84 Long term (current) use of oral hypoglycemic drugs; Z90.89 Acquired absence of other organs; Z90.49 Acquired absence of other specified parts of digestive tract; Z68.36 Body mass index [BMI] 36.0-36.9, adult
CPT/HCPCS: 36415; 71045; 80053; 81001; 82947; 83605; 83735; 83880; 84100; 85025; 87040; 87077; 87086; 87186; 93005; 93010; 94660; 94762; 96365; 97110; 97116; 97162; 97166; 97530; 97535; 99285-25; A9270; J0696; J1650; J7120; U0004

== ENCOUNTER 2021-01-28 18:28 | Inpatient (IN) | payer MEDICARE, BC ==
[~2021-01-28] VITALS: Ht 172.7 cm; Wt 97.7 kg
[~2021-01-28 18:28] MED LIST changes: +METF500C PO; +TAMSULOSIN HCL0.4 M1 PO; +VISBIOME 112.51 EACH PO
[2021-01-28] MEDS ORDERED: OLME5TAB PO (19:03)
[2021-01-28 19:39] LABS: BASOPHILS ABSOLUTE AUTO 0.05 K/mm3 (0.00-0.23); BASOPHILS PERCENT AUTO 1 % (0-2); EOSINOPHILS PERCENT AUTO 0 % (0-6); Hemoglobin 11.4 g/dL (13.5-17.5); IMMATURE GRAN ABSOLUTE AUTO 0.09 K/mm3 (0.00-0.10); IMMATURE GRAN PERCENT AUTO 1 % (0-1); LYMPHOCYTES ABSOLUTE AUTO 1.31 K/mm3 (0.84-5.20); LYMPHOCYTES PERCENT AUTO 15 % (21-46); MONOCYTES ABSOLUTE AUTO 0.82 K/mm3 (0.16-1.47); MONOCYTES PERCENT AUTO 9 % (4-13); Mean Corpuscular HGB Conc 32.6 g/dL (31.5-36.5); Mean Corpuscular Volume 89 fL (80-100); NEUTROPHILS ABSOLUTE AUTO 6.69 K/mm3 (1.96-9.15); NEUTROPHILS PERCENT AUTO 75 % (41-73); RDW Coefficient Variation 13.4 % (11.7-14.2); RDW Standard Deviation 43.8 fL (35.1-46.3); Red Blood Cell Count 3.93 M/mm3 (4.30-5.90); White Blood Cell Count 8.96 K/mm3 (4.00-11.30)
[2021-01-28 19:42] LABS: Mean Platelet Volume 9.7 fL (9.1-12.4); Platelet Count 144 K/mm3 (150-400)
[2021-01-28 19:46] LABS: Alanine Aminotransfer (ALT/SGP 87 U/L (12-78); Albumin, Blood 3.2 g/dL (3.4-5.0); Alk Phos 150 U/L (50-136); Anion Gap 3 mmol/L (6-16); Aspartate Aminotrans (AST/SGOT 156 U/L (12-37); Blood Urea Nitrogen 22 mg/dL (8-24); Bun/Creatinine Ratio 23.3 (12.0-20.0); CO2, Blood 27 mmol/L (21-32); Calcium, Blood 8.9 mg/dL (8.5-10.1); Chloride, Blood 108 mmol/L (98-108); Creatinine, Blood 0.94 mg/dL (0.60-1.20); Globulin, Blood 3.3 g/dL (2.2-4.0); Glomerular Filtration Rate >60 (60-); Glucose, Blood 118 mg/dL (70-99); Potassium, Blood 4.6 mmol/L (3.5-5.5); Sodium, Blood 138 mmol/L (136-145); Total Protein, Blood 6.5 g/dL (6.4-8.2); Troponin I <0.015 ng/mL (0.000-0.040)
[2021-01-28] MEDS ORDERED: VENL150ER PO (21:42)
[2021-01-28] MEDS ORDERED: ESBRIET801 MG PO (21:43)
[2021-01-28] MEDS ORDERED: NEBI5 PO (21:44)
[2021-01-28] MEDS ORDERED: TESTOSTERONE75 G1 TOP (21:46)
[2021-01-28] MEDS ORDERED: ANORO ELLIPTA1 EAC1 INH (21:48)
[2021-01-28] MEDS ORDERED: PRAMIPEXOLE D0.25 M1 PO (21:49)
[2021-01-28] MEDS ORDERED: METF500C PO (22:20)
[2021-01-28] MEDS ORDERED: PRAMIPEXOLE D0.25 MG PO (22:21)
[2021-01-28] MEDS ORDERED: Hydrocortisone5 MG PO (22:23)
--- NOTE | 2021-01-29 04:58 | NUR ---
SHIFT SUMMARY: PATIENT WAS ADMITTED TO THE FLOOR FOR ACUTE PANCRETITIS. HE ARRIVED TO THE ER LAST NIGHT FOR PAIN IN THE EPIGASTRIC AREA. WAS GIVEN A GI COCKTAIL AND MORPHINE WHICH HELPED RELEIVE THE PAIN. HE WAS GIVEN DINNER DOWN IN THE ER PRIOR TO THE DIAGNOSIS BUT STILL HAS BEEN PAIN FREE SINCE THEM. AOX3, INDEPENDENT WITH THE CANE. NORMAL BM, NO N/V/D. MILD EDEMA IN THE LEGS. LS ARE CLEAR, OCCATIONAL COUGH AND USES 3 LITERS OF O2 WHICH IS HIS NORM. HAS GOOD APPETITE CONSTANTLY ASK FOR FOOD AND DRINKS BUT KNOWS HE CAN NOT HAVE ANYTHING RIGHT NOW. STATES HE GETS THIS PAIN OFF AND ON AND IT AWAYS GOES AWAY. LIPASE 2603, AST 156 ALT 87. NEGATIVE TROPONIN. VS WITH SLIGHT ELEVATION IN BP WHICH HE STATS IS HIS NORM. DENIED ANY ISSUES WHEN UP ON THE FLOOR. SLEEPING WELL. WILL REPORT TO DAYSHIFT. CALL LIGHT IN REACH.
[2021-01-29 07:24] LABS: Alanine Aminotransfer (ALT/SGP 215 U/L (12-78); Albumin, Blood 3.2 g/dL (3.4-5.0); Alk Phos 180 U/L (50-136); Anion Gap 3 mmol/L (6-16); Aspartate Aminotrans (AST/SGOT 238 U/L (12-37); Bilirubin, Total 1.1 mg/dL (0.1-1.0); Blood Urea Nitrogen 22 mg/dL (8-24); Bun/Creatinine Ratio 21.4 (12.0-20.0); CO2, Blood 30 mmol/L (21-32); Chloride, Blood 107 mmol/L (98-108); Creatinine, Blood 1.03 mg/dL (0.60-1.20); Globulin, Blood 3.3 g/dL (2.2-4.0); Glomerular Filtration Rate >60 (60-); Glucose, Blood 110 mg/dL (70-99); Potassium, Blood 4.5 mmol/L (3.5-5.5); Sodium, Blood 140 mmol/L (136-145); Total Protein, Blood 6.5 g/dL (6.4-8.2)
[2021-01-29 07:25] LABS: Troponin I <0.015 ng/mL (0.000-0.040)
--- NOTE | 2021-01-29 18:49 | NUR ---
PT REMAINS IND. IN ROOM MAKING NO COMPLIANTS AT THIS TIME. PT IS ALERT AND ORIENTED X4 AND TOLERATED CLEAR LIQ DIET FOR DINNER. STAFF WILL CONTINUE TO MONITOR.
--- NOTE | 2021-01-30 05:15 | NUR ---
SHIFT SUMMARY: AOX3, TOOK SHOWER LAST NIGHT INDEPENTENTLY. NO PAIN ENTIRE SHIFT. TOLERATING CLEAR LIQUIDS. ABDOMIN NON-TENDER. NO N/V/D. NO EDEMA, LS CLEAR. BP ELEVATED AT START OF SHIFT, MEDS GIVEN, BP NORMAL. DENIED ANY NEEDS ALL NIGHT, SLEPT WELL. DID PULL OUT IV ON ACCIDENT GOING TO BATHROOM, SEVERAL ATTEMPTS WERE MADE TO GET ONE. HE DID NOT WANT US TO TRY AGAIN WANTED TO WAIT TILL MORNING. NEW BAG OF FLUIDS WERE HUNG PRIOR TO THAT EVENT. NO ACUTE CHANGES HOPES TO GO HOME TODAY. CALL LIGHT IN REACH.
[2021-01-30 05:48] LABS: Alanine Aminotransfer (ALT/SGP 179 U/L (12-78); Albumin, Blood 2.9 g/dL (3.4-5.0); Albumin/Globulin Ratio 0.9 (0.8-1.8); Alk Phos 163 U/L (50-136); Anion Gap 2 mmol/L (6-16); Aspartate Aminotrans (AST/SGOT 93 U/L (12-37); Bilirubin, Total 0.4 mg/dL (0.1-1.0); Blood Urea Nitrogen 16 mg/dL (8-24); Bun/Creatinine Ratio 16.8 (12.0-20.0); CO2, Blood 32 mmol/L (21-32); Calcium, Blood 8.5 mg/dL (8.5-10.1); Chloride, Blood 109 mmol/L (98-108); Creatinine, Blood 0.95 mg/dL (0.60-1.20); Globulin, Blood 3.2 g/dL (2.2-4.0); Glomerular Filtration Rate >60 (60-); Glucose, Blood 100 mg/dL (70-99); Potassium, Blood 4.1 mmol/L (3.5-5.5); Sodium, Blood 143 mmol/L (136-145); Total Protein, Blood 6.1 g/dL (6.4-8.2)
[2021-01-30 06:04] LABS: C-REACTIVE PROTEIN, EXT RANGE < 2.900 mg/dL (0.000-0.300)
--- NOTE | 2021-01-30 11:33 | NUR ---
01/30/21- per chart review with Dr. Desai, pt is stable to discharge. Met with pt who reports that he was independent prior to coming into the hospital. Pt lives with his in a single story home with working utilities and has no issues returning home. He states there are 3 steps to get into the home. 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 [facility]A- [facility]
--- NOTE | 2021-01-30 17:00 | NUR ---
discharged home with family, reviewed stay, medication, dc instructions and follow up appointments, left in wc with staff pushing it down to s exit
[2021-01-31 07:10] LABS: HBSAG SCREEN Negative (Negative); HEP B CORE AB, TOT Negative (Negative); HEP C VIRUS AB <0.1 (0.0-0.9)
== END 2021-01-30 15:20 | disposition home or self-care (01) | DRG 948 ==
LOC: ER 18:28 → MEDS 21:43
PROVIDERS: Emergency Medicine; Internal Medicine; ADMIT Internal Medicine
DX: R74.01 Elevation of levels of liver transaminase levels (principal); E27.40 Unspecified adrenocortical insufficiency; R74.8 Abnormal levels of other serum enzymes; I10 Essential (primary) hypertension; I25.10 Atherosclerotic heart disease of native coronary artery without angina pectoris; E03.9 Hypothyroidism, unspecified; J84.10 Pulmonary fibrosis, unspecified; G47.33 Obstructive sleep apnea (adult) (pediatric); J61 Pneumoconiosis due to asbestos and other mineral fibers; D64.9 Anemia, unspecified; E11.9 Type 2 diabetes mellitus without complications; J43.9 Emphysema, unspecified; Z77.090 Contact with and (suspected) exposure to asbestos; E66.01 Morbid (severe) obesity due to excess calories; Z96.641 Presence of right artificial hip joint; Z68.31 Body mass index [BMI] 31.0-31.9, adult; Z99.89 Dependence on other enabling machines and devices; Z88.8 Allergy status to other drugs, medicaments and biological substances; Z88.0 Allergy status to penicillin; Z79.84 Long term (current) use of oral hypoglycemic drugs; Z79.899 Other long term (current) drug therapy; Z87.891 Personal history of nicotine dependence; Z90.49 Acquired absence of other specified parts of digestive tract; Z98.890 Other specified postprocedural states; Z79.02 Long term (current) use of antithrombotics/antiplatelets
CPT/HCPCS: 36415; 71045; 74181; 80053; 83036; 83690; 84484; 85025; 86140; 86317; 86704; 86708; 86803; 87340; 93005; 93010; 94640; 94760; 99285-25; A9270; G0378; J1650; J7030

== ENCOUNTER → 2021-03-24 | Outpatient (CLI) | payer MEDICARE, BC ==
[~2021-03-24] MED LIST changes: +ANORO ELLIPTA1 EAC1 INH; +ESBRIET801 MG PO; +Hydrocortisone5 MG PO; +NEBI5 PO; +OLME5TAB PO; +PRAMIPEXOLE D0.25 M1 PO; +PRAMIPEXOLE D0.25 MG PO; +TESTOSTERONE75 G1 TOP; +VENL150ER PO
== END ==
LOC: LAB 16:55 → LAB SHORT 16:55
DX: N39.0 Urinary tract infection, site not specified (principal)
CPT/HCPCS: 87086

== ENCOUNTER 2021-04-15 17:37 | Emergency (ER) | payer MEDICARE, BC ==
[~2021-04-15] VITALS: Ht 172.7 cm; Wt 93.9 kg
[2021-04-15 18:30] LABS: BASOPHILS ABSOLUTE AUTO 0.05 K/mm3 (0.00-0.23); BASOPHILS PERCENT AUTO 1 % (0-2); EOSINOPHILS PERCENT AUTO 0 % (0-6); Hematocrit 36.1 % (37.0-53.0); Hemoglobin 11.8 g/dL (13.5-17.5); IMMATURE GRAN ABSOLUTE AUTO 0.07 K/mm3 (0.00-0.10); IMMATURE GRAN PERCENT AUTO 1 % (0-1); LYMPHOCYTES PERCENT AUTO 13 % (21-46); MONOCYTES ABSOLUTE AUTO 0.43 K/mm3 (0.16-1.47); MONOCYTES PERCENT AUTO 6 % (4-13); Mean Corpuscular HGB 29.5 pg (26.0-34.0); Mean Corpuscular HGB Conc 32.7 g/dL (31.5-36.5); Mean Corpuscular Volume 90 fL (80-100); NEUTROPHILS ABSOLUTE AUTO 6.11 K/mm3 (1.96-9.15); NEUTROPHILS PERCENT AUTO 80 % (41-73); Platelet Count 142 K/mm3 (150-400); RDW Coefficient Variation 12.5 % (11.7-14.2); RDW Standard Deviation 41.2 fL (35.1-46.3); White Blood Cell Count 7.66 K/mm3 (4.00-11.30)
[2021-04-15 18:46] LABS: Alanine Aminotransfer (ALT/SGP 25 U/L (12-78); Albumin, Blood 2.8 g/dL (3.4-5.0); Albumin/Globulin Ratio 0.7 (0.8-1.8); Alk Phos 86 U/L (50-136); Anion Gap 5 mmol/L (6-16); Aspartate Aminotrans (AST/SGOT 16 U/L (12-37); Bilirubin, Total 0.3 mg/dL (0.1-1.0); Blood Urea Nitrogen 17 mg/dL (8-24); Bun/Creatinine Ratio 18.9 (12.0-20.0); CO2, Blood 28 mmol/L (21-32); Calcium, Blood 8.9 mg/dL (8.5-10.1); Chloride, Blood 106 mmol/L (98-108); Globulin, Blood 3.8 g/dL (2.2-4.0); Glomerular Filtration Rate >60 (60-); Glucose, Blood 245 mg/dL (70-99); Potassium, Blood 3.6 mmol/L (3.5-5.5); Sodium, Blood 139 mmol/L (136-145); Total Protein, Blood 6.6 g/dL (6.4-8.2); Troponin I <0.015 ng/mL (0.000-0.040)
[2021-04-15 20:57] LABS: SARS-Cov-2 (COVID-19) PCR, MMC NEGATIVE (NEGATIVE)
[2021-04-15] MEDS ORDERED: CEFP200 PO (22:54)
[2021-04-15] MEDS ORDERED: SPACE CHAMBER1 EACH XX (22:54)
== END 2021-04-15 23:27 | disposition home or self-care (01) ==
LOC: ER 17:37
PROVIDERS: Physician Assistant; Student in an Organized Health Care Education/Training Program
DX: J18.9 Pneumonia, unspecified organism (principal); Z20.822 Contact with and (suspected) exposure to COVID-19; Z88.0 Allergy status to penicillin; Z88.8 Allergy status to other drugs, medicaments and biological substances; Z79.899 Other long term (current) drug therapy; Z79.84 Long term (current) use of oral hypoglycemic drugs; I10 Essential (primary) hypertension; I25.10 Atherosclerotic heart disease of native coronary artery without angina pectoris; J43.9 Emphysema, unspecified
CPT/HCPCS: 36415; 71046; 71260; 80053; 82550; 83880; 84484; 85025; 85379; 93005; 93010; 94640; 94644; 99285-25; A9270; Q9967; U0004

== ENCOUNTER → 2021-05-28 | Outpatient (CLI) | payer MEDICARE, BC ==
[~2021-05-28] MED LIST changes: +SPACE CHAMBER1 EACH XX
== END | disposition home or self-care (01) ==
LOC: LAB SHORT 18:37 → LAB 18:37
DX: N39.0 Urinary tract infection, site not specified (principal)
CPT/HCPCS: 87077; 87086; 87186

== ENCOUNTER 2021-11-14 00:06 | Inpatient (IN) | payer MEDICARE, BC ==
[~2021-11-14] VITALS: Ht 172.7 cm; Wt 90.4 kg
[2021-11-14 00:18] LABS: BASOPHILS ABSOLUTE AUTO 0.08 K/mm3 (0.00-0.23); BASOPHILS PERCENT AUTO 1 % (0-2); EOSINOPHILS PERCENT AUTO 0 % (0-6); Hematocrit 41.9 % (37.0-53.0); Hemoglobin 13.4 g/dL (13.5-17.5); IMMATURE GRAN PERCENT AUTO 1 % (0-1); LYMPHOCYTES ABSOLUTE AUTO 3.79 K/mm3 (0.84-5.20); LYMPHOCYTES PERCENT AUTO 23 % (21-46); MONOCYTES ABSOLUTE AUTO 1.08 K/mm3 (0.16-1.47); MONOCYTES PERCENT AUTO 7 % (4-13); Mean Corpuscular HGB 29.1 pg (26.0-34.0); Mean Corpuscular Volume 91 fL (80-100); Mean Platelet Volume 9.5 fL (9.1-12.4); NEUTROPHILS ABSOLUTE AUTO 11.26 K/mm3 (1.96-9.15); NEUTROPHILS PERCENT AUTO 69 % (41-73); Platelet Count 188 K/mm3 (150-400); RDW Coefficient Variation 13.5 % (11.7-14.2); RDW Standard Deviation 44.2 fL (35.1-46.3); Red Blood Cell Count 4.61 M/mm3 (4.30-5.90); White Blood Cell Count 16.31 K/mm3 (4.00-11.30)
[2021-11-14 00:36] LABS: PCO2 Arterial 52.5 mmHg (35-45); PO2 Arterial 65.5 mmHg (80-100); pH Blood Arterial 7.39 (7.35-7.45)
[2021-11-14 00:36] LABS: Albumin, Blood 3.2 g/dL (3.4-5.0); Albumin/Globulin Ratio 0.8 (0.8-1.8); Bilirubin, Total 0.4 mg/dL (0.1-1.0); Bun/Creatinine Ratio 17.9 (12.0-20.0); Calcium, Blood 9.1 mg/dL (8.5-10.1); Creatinine, Blood 0.89 mg/dL (0.60-1.20); Globulin, Blood 3.9 g/dL (2.2-4.0); Potassium, Blood 3.9 mmol/L (3.5-5.5); Total Protein, Blood 7.1 g/dL (6.4-8.2)
[2021-11-14] MEDS ORDERED: HYDR1TAB94 PO (00:37)
[2021-11-14] MEDS ORDERED: Nitrostat0.3 MG SL (00:38)
[2021-11-14] MEDS ORDERED: ALEN70 PO (00:38)
[2021-11-14] MEDS ORDERED: CILO100 PO (00:39)
[2021-11-14] MEDS ORDERED: LISI5 PO (00:39)
[2021-11-14 04:57] LABS: BASOPHILS ABSOLUTE AUTO 0.03 K/mm3 (0.00-0.23); BASOPHILS PERCENT AUTO 0 % (0-2); EOSINOPHILS PERCENT AUTO 0 % (0-6); Hematocrit 38.2 % (37.0-53.0); Hemoglobin 12.2 g/dL (13.5-17.5); IMMATURE GRAN ABSOLUTE AUTO 0.07 K/mm3 (0.00-0.10); IMMATURE GRAN PERCENT AUTO 1 % (0-1); LYMPHOCYTES ABSOLUTE AUTO 0.22 K/mm3 (0.84-5.20); LYMPHOCYTES PERCENT AUTO 2 % (21-46); MONOCYTES PERCENT AUTO 4 % (4-13); Mean Corpuscular HGB 28.9 pg (26.0-34.0); Mean Corpuscular HGB Conc 31.9 g/dL (31.5-36.5); Mean Corpuscular Volume 91 fL (80-100); Mean Platelet Volume 10.2 fL (9.1-12.4); NEUTROPHILS ABSOLUTE AUTO 14.04 K/mm3 (1.96-9.15); NEUTROPHILS PERCENT AUTO 94 % (41-73); Platelet Count 141 K/mm3 (150-400); RDW Coefficient Variation 13.6 % (11.7-14.2); Red Blood Cell Count 4.22 M/mm3 (4.30-5.90); White Blood Cell Count 14.96 K/mm3 (4.00-11.30)
[2021-11-14 05:13] LABS: Anti-Xa UFH, PHA Monitoring <0.10 IU/mL; International Normalized Ratio 1.13; Prothrombin Time Results 11.8 Sec (9.7-11.5)
[2021-11-14 05:34] LABS: Alanine Aminotransfer (ALT/SGP 28 U/L (12-78); Albumin, Blood 3.1 g/dL (3.4-5.0); Albumin/Globulin Ratio 0.8 (0.8-1.8); Alk Phos 113 U/L (50-136); Anion Gap 9 mmol/L (6-16); Aspartate Aminotrans (AST/SGOT 19 U/L (12-37); Bilirubin, Total 0.4 mg/dL (0.1-1.0); Blood Urea Nitrogen 15 mg/dL (8-24); CO2, Blood 31 mmol/L (21-32); Calcium, Blood 8.7 mg/dL (8.5-10.1); Chloride, Blood 101 mmol/L (98-108); Cholesterol 127 mg/dL (50-200); Creatinine, Blood 0.83 mg/dL (0.60-1.20); Free Thyroxine 1.01 ng/dL (0.70-1.60); Globulin, Blood 3.7 g/dL (2.2-4.0); Glomerular Filtration Rate 91 (60-); Glucose, Blood 231 mg/dL (70-99); HDL Cholesterol 43 mg/dL (>39); LDL/HDL RATIO 1.6; Low Density Lipoprotein Chol 67 mg/dL (0-110); Potassium, Blood 3.6 mmol/L (3.5-5.5); Sodium, Blood 141 mmol/L (136-145); Thyroid Stimulating Hormone 0.761 uIU/mL (0.360-4.800); Total Protein, Blood 6.8 g/dL (6.4-8.2); Triglycerides 83 mg/dL (30-160); Very Low Density Lipoprot Chol 16 mg/dL (6-32)
--- NOTE | 2021-11-14 07:11 | NUR ---
SHIFT SUMMARY PATIENT ALERT AND ORIENTED. HAD NO COMPLAINTS OF PAIN. IS VERY SHORT OF BREATH. CALL LIGHT WITHIN REACH REPORT GIVEN TO ONCOMING RN.
--- NOTE | 2021-11-14 10:34 | NUR ---
PT HAS BEEN HAVING TROUBLE KEEPING HIS SATS UP. HE WAS SWITCHED FROM BIPAP TO NC THIS AM AND DE SATTED WHEN RESPIRATORY LEFT TO 78. THEN HE WAS SWITCHED TO HIGHFLOW AND DE SATTED AGAIN TO 73 WHEN SITTING UP AT THE EDGE OF THE BED. HE IS NOW ON 10L HIGHFLOW SITTING IN A RECLINER SATTING AT 92%. A COVID TEST WAS ORDERED AND DONE
[2021-11-14 11:53] LABS: Influenza A, PCR NEGATIVE (NEGATIVE); Influenza B, PCR NEGATIVE (NEGATIVE); Resp Syncytial Virus, PCR NEGATIVE (NEGATIVE); SARS-Cov-2 (COVID-19) PCR, MMC NEGATIVE (NEGATIVE)
--- NOTE | 2021-11-14 18:42 | NUR ---
SHIFT SUMMARY SEE OTHER NOTES FOR PTS RESPIRATORY CHANGES TODAY. PT HAS BEEN RESTING COMFORTABLY ON 10L HIGHFLOW AT 92% WITH DESATS WHEN STANDING UP OR MOVING TO CHAIR. HE IS FAIRLY FORGETFUL, WHICH HIS SAYS IS NORMAL. SHE ALSO LET ME KNOW THAT HES NORMALLY ON 5L OF O2 AT HOME EVEN THOUGH HE SAYS HE IS ON 3L. HIS HAS FORGOTTEN TO BRING IN HIS LUNG MEDICATION ALL DAY TODAY DESPITE REMINDERS. THIS RN CALLED PHARAM TO SEE IF THERE WAS A SUBSTITUTE DRUG TO BE GIVEN AND THERE WAS NONE. WAS ENCOURAGE TO BRING IT TOMORROW. HE COMPLETED THE FIRST PART OF HIS STRESS TEST TODAY. AND WILL BE NO CAFFIENE AFTER 8 AND NO FOOD AFTER 12. HEPARIN DRIP IN STILL RUNNING AT ORIGINAL RATE. WILL CONTINUE TO MONITOR.
--- NOTE | 2021-11-15 06:15 | NUR ---
SHIFT SUMMARY PATIENT ALERT AND ORIENTED X3. HAD NO COMPLAINTS OF PAIN. BECOMES SHORT OF BREATH AND DESATS EASILY UPON EXERTION. NO ACUTE ISSUES NOTED OVERNIGHT. CALL LIGHT WITHIN REACH. REPORT GIVEN TO ONCOMING RN.
[2021-11-15 08:01] LABS: BASOPHILS ABSOLUTE AUTO 0.02 K/mm3 (0.00-0.23); BASOPHILS PERCENT AUTO 0 % (0-2); EOSINOPHILS PERCENT AUTO 0 % (0-6); Hematocrit 36.5 % (37.0-53.0); Hemoglobin 11.5 g/dL (13.5-17.5); IMMATURE GRAN ABSOLUTE AUTO 0.03 K/mm3 (0.00-0.10); IMMATURE GRAN PERCENT AUTO 0 % (0-1); LYMPHOCYTES PERCENT AUTO 7 % (21-46); MONOCYTES ABSOLUTE AUTO 0.83 K/mm3 (0.16-1.47); MONOCYTES PERCENT AUTO 5 % (4-13); Mean Corpuscular HGB 29.1 pg (26.0-34.0); Mean Corpuscular HGB Conc 31.5 g/dL (31.5-36.5); Mean Corpuscular Volume 92 fL (80-100); Mean Platelet Volume 9.9 fL (9.1-12.4); NEUTROPHILS ABSOLUTE AUTO 13.28 K/mm3 (1.96-9.15); NEUTROPHILS PERCENT AUTO 87 % (41-73); Platelet Count 129 K/mm3 (150-400); RDW Coefficient Variation 13.6 % (11.7-14.2); Red Blood Cell Count 3.95 M/mm3 (4.30-5.90); White Blood Cell Count 15.26 K/mm3 (4.00-11.30)
[2021-11-15 08:14] LABS: Albumin, Blood 2.8 g/dL (3.4-5.0); Albumin/Globulin Ratio 0.8 (0.8-1.8); Bilirubin, Total 0.6 mg/dL (0.1-1.0); Bun/Creatinine Ratio 27.4 (12.0-20.0); Calcium, Blood 8.7 mg/dL (8.5-10.1); Creatinine, Blood 0.95 mg/dL (0.60-1.20); Globulin, Blood 3.7 g/dL (2.2-4.0); Magnesium, Blood 1.8 mg/dL (1.6-2.4); Phosphorus, Blood 2.8 mg/dL (2.5-4.9); Potassium, Blood 3.7 mmol/L (3.5-5.5); Total Protein, Blood 6.5 g/dL (6.4-8.2)
[2021-11-15 08:39] LABS: PCO2 Arterial 46.8 mmHg (35-45); pH Blood Arterial 7.48 (7.35-7.45)
--- NOTE | 2021-11-15 09:00 | NUR ---
PT TO ICU ROOM 4 FROM MEDICAL FLOOR. PT ARRIVES ON BIPAP, MOVED TO ICU BED USING SLIDER SHEET. RT AT BEDSIDE ADJUSTING BIPAP SETTINGS, SATS CURRENTLY STABLE. PT ALERT TO VERBAL STIMULATION, PLEASANTLY CONFUSED BUT ABLE TO ANSWER QUESTIONS APPROPRIATELY AND REDIRECTABLE. PT ABLE TO REPOSITION SELF IN BED AND ASSIST WITH CARE. LUIS PLACED TO MONITOR STRICT I/O'S PT POSSIBLY FLUID OVERLOAD AND BEING DIURESED. PT NSR-SIT, BP STABLE, TMAX 100.5. PT'S UPDATED BY THIS NURSE. SEE FULL SHIFT ASSESSMENT.
[2021-11-15 09:46] LABS: Source, Urine Foley catheter
[2021-11-15 09:50] LABS: Appearance, Urine Clear (Clear); Bilirubin, Urine Neg (Neg); Blood, Urine Neg (Neg); Color, Urine Yellow (P-Yellow); Glucose Qualitative, Urine Neg (Neg); Ketones, Urine Neg (Neg); Leukocyte Esterase, Urine Neg (Neg); Nitrite, Urine Neg (Neg); Protein, Urine 3+ (Neg); Urobilinogen, Urine NORM (Normal); pH, Urine 6.5 (5.0-8.0)
[2021-11-15 09:59] LABS: Hyaline Casts 0-2 /lpf (0-2)
[2021-11-15 10:00] LABS: Red Blood Cells, Urine 0-2 /hpf (0-2); Squamous Epithelial Cells Rare /hpf (Few); White Blood Cells, Urine 0-2 /hpf (0-5)
[2021-11-15 10:01] LABS: Bacteria Rare /hpf
[2021-11-15] MEDS ORDERED: ANORO ELLIPTA1 EACH INH (13:28)
[2021-11-15] MEDS ORDERED: METF500C PO (13:49)
--- NOTE | 2021-11-15 14:18 | NUR ---
PT'S AT BEDSIDE, TAKING PTS DIRTY CLOTHES AND WATCH HOME.
--- NOTE | 2021-11-15 15:57 | NUR ---
PT WAS DESATTING UPON BEING TAKEN OFF THE BIPAP. HE WAS AT 76% WITH 112 HR. RT WAS CALLED. PT WAS UNABLE TO GET ABOVE 83% ON ON 15L BLEED INTO HIS CPAP. HE WAS COLD, SWEATING, AND SHAKING. DR WAS CALLED, BLOOD GAS ORDERED AND DR GAVE ORDERS TO TRANSFER HIM TO THE ICU. ALL MEDS TAKEN AND BEDSIDE REPORT GIVEN TO JOEY ZUNIGA.
--- NOTE | 2021-11-15 18:17 | NUR ---
SHIFT SUMMARY NO ACUTE CHANGES SINCE ARRIVAL TO ICU. PT REMAINS BIPAP DEPENDENT, SETTINGS /, 50% WITH SATS 90-94%. PT REMAINS ALERT TO VERBAL STIMULUATION, CONFUSED BUT COOPERATIVE WITH CARE, LETHARGIC. TMAX 100.5, CURRENT TEMP 99.8. 1100 ML URINARY OUTPUT FROM CATHETER. HEPARIN REMAINS AT 17 U/HR. WILL REPORT TO ONCOMING NURSE.
--- NOTE | 2021-11-15 20:53 | NUR ---
PT AWAKE IN BED WITH BIPAP. HE IS ALERT TO SELF AND PLACE, OTHERWISE IS PLEASANTLY CONFUSED AND FORGETFUL AT BASELINE ACCORDING TO . BIPAP SETTINGS OF 12/8, FIO2 50% AND SPO2 IS 98-100%. LUNGS ARE DIMINSHED THROUGHOUT WITH SOME SCATTERED CRACKLES ON RIGHT. HR IS SR TO ST, RATE IN 90-LOW 100'S. BP STABLE. CURRENTLY NPO DUE TO POSSIBLE ASPIRATION PNEUMONIA. TEMP LUIS PRESENT AND PT HAS LOW GRADE FEVER OF 99.6. HEPARIN INFUSING AT 17 UNITS/HR INTO RUDI PICC. ORDERS REVIEWED, WILL TREAT PRESCRIBED.
--- NOTE | 2021-11-15 21:42 | NUR ---
BEDSIDE SWALLOW EVAL DONE. PLACED PT ON OXYMIZER AT 15L AND SPO2 MAINTAINED 94% OR GREATER. PASSED SWALLOW EVAL WITHOUT ANY COUGHING OR SIGNS OF ASPIRATION. PT WAS ABLE TO TAKE PO MEDICATIONS WITHOUT DIFFICULTY.
[2021-11-16 05:30] LABS: Mean Corpuscular HGB 29.2 pg (26.0-34.0); Mean Corpuscular HGB Conc 32.3 g/dL (31.5-36.5); Mean Corpuscular Volume 91 fL (80-100); Mean Platelet Volume 9.9 fL (9.1-12.4); Platelet Count 128 K/mm3 (150-400); RDW Standard Deviation 46.3 fL (35.1-46.3); Red Blood Cell Count 3.42 M/mm3 (4.30-5.90); White Blood Cell Count 9.61 K/mm3 (4.00-11.30)
--- NOTE | 2021-11-16 06:34 | NUR ---
PT REMAINED ON BIPAP SINCE 2329, SETTINGS OF 12/8 FIO2 50%. SPIO2 HAS REMAINED ABOVE 92%, EVEN WHEN REMOVED TO TAKE PO MEDICATIONS. HE CONTINUES TO BE FORGETFUL, BUT IS AWARE HE IS IN THE HOSPITAL. FOLLOWS COMMANDS WELL, USES CALL LIGHT APPROPRIATELY, AND IS INDEPENDENT REPOSITIONING IN BED. HR IS SR WITH OCCASIONAL PVC'S. RATE 80-90'S. BP STABLE. AFEBRILE. 2100ML YELLOW, CLEAR URINE OUT THIS SHIFT. HEPARIN GTT CONTINUES AT 17 UNITS/HR. PICC DRESSING CHANGED THIS SHIFT WITH GAUZE BELOW CHG TO HELP WITH OOZING BLOOD; HOWEVER, BLOOD CONTINUES TO OOZE FROM SITE. AM LABS ARE STILL PENDING. WILL REPORT TO ONCOMING SHIFT WHEN AVAILABLE.
[2021-11-16 06:44] LABS: Albumin, Blood 2.4 g/dL (3.4-5.0); Albumin/Globulin Ratio 0.7 (0.8-1.8); Bilirubin, Total 0.8 mg/dL (0.1-1.0); Bun/Creatinine Ratio 25.7 (12.0-20.0); Calcium, Blood 8.4 mg/dL (8.5-10.1); Creatinine, Blood 0.93 mg/dL (0.60-1.20); Globulin, Blood 3.6 g/dL (2.2-4.0); Magnesium, Blood 1.7 mg/dL (1.6-2.4); Potassium, Blood 3.4 mmol/L (3.5-5.5)
--- NOTE | 2021-11-16 08:04 | NUR ---
ASSUMED CARE PT. ALERT, ORIENTED TO LOCATION AND EVENT BUT UNCLEAR ON DATE. REMAINS ON BIPAP. PT CURRENTLY GETTING A BREATHING TX THEN WILL TAKE A BREAK WITH OXYMIZER. PT DENIES PAIN THIS AM, BUT REPORTS CHRONIC PAIN TO BACK THAT IS RELIEVED WITH REPOSITIONING. PT ABLE TO REPOSITION SELF FOR COMFORT. CONTINUES WITH HEAPRIN INFUSING. PICC LINE IN PLACE, CONTINUES TO OOZE. PT. VSS THIS AM. CALL LIGHT IN REACH.
--- NOTE | 2021-11-16 10:19 | NUR ---
PT TOLERATED PO MEDS WELL. PLACED ON OXYMIZER, TITRATED DOWN TO 7L AT THIS TIME, SPO2 96%. SITTING UP IN BED WATCHING TV.
--- NOTE | 2021-11-16 17:55 | NUR ---
SHIFT SUMMARY PT REMAINS UP IN BEDSIDE CHAIR T/O DAY. UP WITH STAND BY ASSIST TO COMMODE. PT. VSS T/O DAY OXYGEN TITRATED BETWEEN 7-10L DEPENDING ON ACTIVITY LEVEL. TOLERATED MEALS TODAY WITH NO ISSUES. PT REMAINS ON HEPARIN GTT WITH PLANS FOR STRESS TEST IN AM. ORDERS FOR NPO AT MIDNIGHT AND NO CAFFINE AFTER [address] PICC DRESSING REPLACED THIS PM DUE TO OOZING. GAUZE DRESSING IN PLACE. PT. HAS CALL LIGHT IN REACH. REPORT TO ONCOMING RN.
--- NOTE | 2021-11-16 18:36 | NUR ---
PT ASSISTED BACK TO BED PER REQUEST. DID WELL WITH STAND BY TRANSFER WITH CORDS AND LINES.
--- NOTE | 2021-11-16 19:34 | NUR ---
ASSUMED CARE PT ALERT, SITTING UP IN BED, ORIENTED TO PLACE AND EVENT, BUT NOT DATE. PLEASANT AND COOPERATIVE. ABLE TO USE CALL LIGHT APPROPRIATELY AND REPOSITIONS SELF INDEPENDENT IN BED. WEARING 7L OXYMIZER, SPO2 96%. RESPIRATIONS UNLABORED, ABLE TO SPEAK IN FULL SENTENCES, RATE IN LOW 20'S. HR SR WITH OCCASIONAL PVC'S, BP STABLE. TEMP LUIS PATENT, DRAINING CLEAR YELLOW URINE. PICC DRESSING WITH GAUZE IN PLACE, SOME OOZING NOTED, 8CM OUT. PLAN TO HOLD CAFFIENE THIS EVENING AND CHANGE TO NPO AFTER MIDNIGHT FOR STRESS TEST IN AM. ORDERS REVIEWED, WILL TREAT PRESCRIBED.
--- NOTE | 2021-11-16 22:29 | NUR ---
PT'S UPDATED THIS EVENING.
[2021-11-17 00:50] LABS: Vancomycin, Trough 18.7 ug/mL (5.0-10.0)
[2021-11-17 04:54] LABS: BASOPHILS ABSOLUTE AUTO 0.02 K/mm3 (0.00-0.23); BASOPHILS PERCENT AUTO 0 % (0-2); EOSINOPHILS PERCENT AUTO 0 % (0-6); Hematocrit 31.5 % (37.0-53.0); Hemoglobin 9.9 g/dL (13.5-17.5); IMMATURE GRAN ABSOLUTE AUTO 0.04 K/mm3 (0.00-0.10); IMMATURE GRAN PERCENT AUTO 0 % (0-1); LYMPHOCYTES ABSOLUTE AUTO 0.64 K/mm3 (0.84-5.20); LYMPHOCYTES PERCENT AUTO 6 % (21-46); MONOCYTES ABSOLUTE AUTO 0.41 K/mm3 (0.16-1.47); MONOCYTES PERCENT AUTO 4 % (4-13); Mean Corpuscular HGB 28.6 pg (26.0-34.0); Mean Corpuscular HGB Conc 31.4 g/dL (31.5-36.5); Mean Corpuscular Volume 91 fL (80-100); Mean Platelet Volume 9.8 fL (9.1-12.4); NEUTROPHILS ABSOLUTE AUTO 8.92 K/mm3 (1.96-9.15); NEUTROPHILS PERCENT AUTO 89 % (41-73); Platelet Count 134 K/mm3 (150-400); RDW Coefficient Variation 13.6 % (11.7-14.2); RDW Standard Deviation 44.7 fL (35.1-46.3); Red Blood Cell Count 3.46 M/mm3 (4.30-5.90); White Blood Cell Count 10.03 K/mm3 (4.00-11.30)
--- NOTE | 2021-11-17 04:56 | NUR ---
PT NOTED TO DESAT INTO UPPER 80'S LOW 90'S ON 10L OXYMIZER. EXPIRATORY WHEEZES HEARD IN ALL LUNG CORADO AND CRACKLES IN RIGHT LOBES AND LEFT LOWER LOBE. RT ADMINISTERED NEBULIZER TREATMENT, BUT PT'S SATS ONLY IN LOW 90'S. BIPAP PLACED AND SETTINGS OF 12/8, FIO2 45%.
[2021-11-17 05:25] LABS: Bun/Creatinine Ratio 24.4 (12.0-20.0); Calcium, Blood 8.3 mg/dL (8.5-10.1); Creatinine, Blood 0.98 mg/dL (0.60-1.20); Potassium, Blood 3.3 mmol/L (3.5-5.5)
--- NOTE | 2021-11-17 05:45 | NUR ---
PT STATES HE SLEPT OKAY THROUGHOUT THE NIGHT. HE WORE THE OXYMIZER AT 10L UP UNTIL AROUND 0500, THEN BIPAP PLACED FOR LOW SPO2 AND CRACKLES THROUGHOUT. HR REMAINED SR WITH RATE IN 70-90'S. BP STABLE. AFEBRILE. CAFFIENE HAS BEEN HELD SINCE 1900 YESTERDAY, AND HE HAS BEEN NPO SINCE 0000 FOR ANTICIPATION OF STRESS TEST THIS AM. HE CONTINUES TO BE SOMEWHAT FORGETFUL, BUT HAS NOT DECLINED IN MENTATION OTHERWISE. WILL REPORT TO ONCOMING SHIFT WHEN AVAILABLE.
--- NOTE | 2021-11-17 09:04 | NUR ---
ASSUMED CARE OF PT, REPORT RCV'D FROM MARCUS Sykes RN. PT ALERT AND ORIENTED TO SELF/PLACE, OCCASIONALLY FORGETFUL AND SLOW TO RESPOND. STAND BY ASSIST TO CHAIR, STEADY ON FEET. PT ON 7L OXYMIZER, SATS>90%, EXPIRATORY WHEEZE THAT CLEARS WITH COUGH. HEPARIN @17 UNITS/HR. SEE FULL SHIFT ASSESSMENT.
--- NOTE | 2021-11-17 13:46 | NUR ---
BEDSIDE STRESS TEST COMPLETED. PT TOLERATED WELL. PT REMAINS ALERT AND ORIENTED, COOPERATIVE WITH CARE. PTS CALLED AND UPDATED WITH PT'S STATUS AND PLAN OF CARE.
--- NOTE | 2021-11-17 15:56 | NUR ---
ASSUMED CARE: PT SATTING >95% ON 6LPM VIA NC, SINUS RHYTHM IN 80'S, AND SBP 110'S. REVIEWED SHIFT ASSESSMENT FROM PREVIOUS RN AND AGREE EXCEPT CHANGES REGARDING O2 SUPPLEMENTATION. LUIS CATHETER PRESENT AND DRAINING TO GRAVITY. PT UPRIGHT IN BED AT TIME OF HANDOFF, AT BEDSIDE. NO CUTE NEEDS/DISTRESS AT THIS TIME, CALLIGJHT WITHIN REACH.
--- NOTE | 2021-11-17 17:00 | NUR ---
TRANSFER: PT SATTING >95% ON 6LPM VIA NC, SINUS RHYTHM IN 80'S, AND SBP IN 170'S. PT MEDICATEDD FOR BP BEFORE TRANSFER TO PCU. PT TRANSPORTED BY STUDENT NURSE, DENY, AND JOEY Guido VIA WHEELCHAIR W/ O2. PT'S HEPARIN GTT WAS DISCONNECTED WHEN ENTERING THE ROOM TO GATHER BELONGINGS, JOEY Guido VERIFIED HEPARIN GTT W/ RECEIVING NURSE DNEISHA.
--- NOTE | 2021-11-17 18:28 | NUR ---
PCU TRANSFER NOTE PATIENT ARRIVED TO PCU7 FROM ICU4 AT APPROXIMATELY 1700 VIA WC. PATIENT IS A&O TO SOME DEGREE, BUT DOES SHOW SIGNS OF FORGETFULLNESS/CONFUSION AT TIMES. TELE NSR 70-80S. SPO2>90% 6L O2 NC. BP SLIGHTLY INCREASED, OTHERWISE VSS. PATIENT DOES UTILIZE BIPAP AT NIGHT. PATIENT DENIES CP/PRESSURE, SOB, N/V, NUMBNESS/TINGLING AT THIS TIME. PATIENT IS 1 PERSON TRANSFER. LUIS CATHETER IS IN PLACE PATIENT IS ON STRICT I&O. LS DIMINISHED T/O, COARSE CRACKLES PRESENT IN LOWER LOBES. NO EDEMA PRESENT AT THIS TIME. HEPARIN GTT PER EMAR.
--- NOTE | 2021-11-17 18:43 | NUR ---
Notified Dr Crenshaw of stress test results, new orders to d/c heparin and start lovenox, orders entered.
--- NOTE | 2021-11-17 19:18 | NUR ---
I have reveiwed the nursing scheduler documentation and am in agreement. Heparin stopped and lovenox given per orders.
--- NOTE | 2021-11-17 21:44 | NUR ---
CARE ASSUMPTION: ASSUMED CARE FROM DENISHA GANNON, JOEY AND STUDENT. PATIENT WAS TRANSFERRED TO PCU FROM ICU AROUND 1700. PATIENT O2 SATS >90% ON 6L NC. RT PREPARED BIPAP FOR NOC. PATIENTS HANDS ARE COOL AND CYANOTIC, BUT PULSES ARE STRONG. SPO2 MONITOR IS ON TOES FOR BEST PLETH. PATIENT DENIES SOB OR PAIN. DISPLAYS OF CONFUSION BUT REDIRECTABLE. PLEASANT AND COOPERATIVE WITH CARE. BED LOW AND LOCKED WITH CALL LIGHT IN PLACE.
--- NOTE | 2021-11-17 22:45 | NUR ---
SPOKE WITH PATIENT SPOUSE AT 2221 AND UPDATED ON PATIENT STATUS.
[2021-11-18 04:12] LABS: BASOPHILS ABSOLUTE AUTO 0.02 K/mm3 (0.00-0.23); BASOPHILS PERCENT AUTO 0 % (0-2); EOSINOPHILS PERCENT AUTO 0 % (0-6); Hematocrit 23.1 % (37.0-53.0); Hemoglobin 7.5 g/dL (13.5-17.5); IMMATURE GRAN ABSOLUTE AUTO 0.04 K/mm3 (0.00-0.10); IMMATURE GRAN PERCENT AUTO 0 % (0-1); LYMPHOCYTES ABSOLUTE AUTO 0.82 K/mm3 (0.84-5.20); LYMPHOCYTES PERCENT AUTO 8 % (21-46); MONOCYTES ABSOLUTE AUTO 0.48 K/mm3 (0.16-1.47); MONOCYTES PERCENT AUTO 4 % (4-13); Mean Corpuscular HGB 29.4 pg (26.0-34.0); Mean Corpuscular HGB Conc 32.5 g/dL (31.5-36.5); Mean Corpuscular Volume 91 fL (80-100); Mean Platelet Volume 9.4 fL (9.1-12.4); NEUTROPHILS ABSOLUTE AUTO 9.59 K/mm3 (1.96-9.15); NEUTROPHILS PERCENT AUTO 88 % (41-73); Platelet Count 165 K/mm3 (150-400); RDW Coefficient Variation 13.4 % (11.7-14.2); RDW Standard Deviation 44.1 fL (35.1-46.3); Red Blood Cell Count 2.55 M/mm3 (4.30-5.90); White Blood Cell Count 10.95 K/mm3 (4.00-11.30)
[2021-11-18 04:32] LABS: Albumin, Blood 2.3 g/dL (3.4-5.0); Albumin/Globulin Ratio 0.7 (0.8-1.8); Bilirubin, Total 0.5 mg/dL (0.1-1.0); Calcium, Blood 8.1 mg/dL (8.5-10.1); Globulin, Blood 3.4 g/dL (2.2-4.0); Potassium, Blood 3.1 mmol/L (3.5-5.5); Total Protein, Blood 5.7 g/dL (6.4-8.2)
--- NOTE | 2021-11-18 05:10 | NUR ---
PATIENT UPDATE: LOW POTASSIUM THIS AM OF 3.1. SPOKE WITH DR. RAMOS AND RECEIVED NEW ORDER.
--- NOTE | 2021-11-18 06:26 | NUR ---
SHIFT SUMMARY: PATIENT MAINTAINED O2 SAT >94% ON 9L NC AND BIPAP. PATIENT SLEPT T/O NOC WITH BIPAP IN PLACE. DENIES SOB OR CHEST PAIN. PATIENT A&O TO PLACE AND SELF, OCCASIONALLY MAKES CONFUSING STATEMENTS/OBSERVATIONS. LUIS DRAINING TO GRAVITY. REPOSITIONS SELF IN BED. PICC DRAWS AND FLUSHES. POTASSIUM 3.1 THIS AM - KCL INFUSION RUNNING. NO ADVERSE EVENTS THIS SHIFT. WILL CONTINUE TO MONITOR AND REPORT TO ONCOMING RN.
[2021-11-18 13:47] LABS: Vancomycin, Trough 24.4 ug/mL (5.0-10.0)
--- NOTE | 2021-11-18 18:09 | NUR ---
ASSUMED CARE OF PT AT 0700. PT ALERT, CONFUSED AT TIMES, WORKED WITH PT/OT. O2 DEMANDS REMAIN BETWEEN 7L AT REST AND 9L WITH ANY ACTIVITY, SP02 DROPS TO 80s WITH ACTIVITY. OOB WITH WALKER TO BSC AND RECLINER CHAIR. AT BEDSIDE TO VISIT. NO ACUTE EVENTS T/O THE SHIFT. CALL LIGHT IN REACH, PT ABLE TO USE, BED ALARM ON FOR SAFETY. WILL CONTINUE TO MONITOR AND GIVE REPORT TO NOC SHIFT RN.
[2021-11-18 21:38] LABS: Vancomycin, Random 18.4 ug/mL
--- NOTE | 2021-11-18 22:27 | NUR ---
CARE ASSUMPTION: ASSUMED CARE FROM JOEY YOUSSEF. PATIENT WATCHING TV AND FINISHING DINNER. PLEASANTLY CONFUSED, STATED HE IS READY TO GO HOME. CALL LIGHT IN REACH.
--- NOTE | 2021-11-19 06:06 | NUR ---
SHIFT SUMMARY: PATIENT DENIES SOB OR CHEST PAIN. VSS ON 6L NC/9L BIPAP. PATIENT'S CONFUSION INCREASED AROUND MIDNIGHT AND NEEDED REORIENTED TO PLACE AND SITUATION. RE-EDUCATED STRIP MACHINE OPERATOR LIGHT USE PATIENT WAS CALLING OUT AND STATED, "NOTHING WORKS AND I WAS ABOUT TO GO [place] IN THE [place] TO GET HELP." PATIENT DID NOT REMEMBER WHAT HE NEEDED HELP WITH THAT RESULTED IN HIS CALLING OUT. PICC LINE DRESSING WAS CHANGED PER PREVIOUS NOTE. NO ADVERSE EVENTS THIS SHIFT, MEDICATED PER EMAR, WILL CONTINUE TO MONITOR AND REPORT TO ONCOMING RN. BED LOW AND CALL LIGHT IN REACH.
--- NOTE | 2021-11-19 08:00 | NUR ---
NURSING PCU DAYSHIFT: Assumed care of pt at approx 0730. A/O, very pleasant, cooperative with care. C/O 7-10/10 mouth pain from sores r/t chemo, no other c/o pain/discomfort. Skin intact, no breakdown noted. C/O general weakness and mild dizziness. Tele in place, NSR, no c/o CP/pressure, SBP 90's, no noted edema. 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 Abd soft, mildly distended which pt states is normal, nontender this a.m., reported improved nausea, voiding w/o difficulty. Accessed mediport to JUDI, DEVEN infusing at 75cc/hr. No s/s of acute distress this a.m. Magic mouthwash ordered for mouth discomfort. Pt denies any other current needs or questions regarding plan of care. Awaiting rounding from PMD, call light in reach, cont to monitor for hypotension or other changes.
--- NOTE | 2021-11-19 17:23 | NUR ---
NO ACUTE EVENTS T/O THE SHIFT. PT WORKED WITH PT/OT. O2 HAS BEEN WEANED DOWN TO 5L WITH SP02>95% AT REST. SP02 DROPS TO 80s WITH ACTIVITY, BUT QUICKLY RECOVERS. PT'S IN TO VISIT TODAY, UPDATED ON PLAN OF CARE AND POSSIBILITY OF DISCHARGE TOMORROW. PT AND AGREEABLE WITH THIS. LUIS CATHETER REMOVED, PT HAD INCONTENENT VOID POST REMOVAL. CALL LIGHT IN REACH, PT USES APPROPRIATELY, WILL CONTINUE TO MONITOR AND GIVE REPORT TO NOC SHIFT RN.
--- NOTE | 2021-11-19 19:13 | NUR ---
CARE ASSUMPTION: PATIENT ON BASELINE 5L NC. RECEIVED REPORT FROM DOMONIUQE HUMPHREY RN. PLAN TO D/C HOME TOMORROW. TOBY RUIZ - PATIENT HAD ONE INCONTINENT EPISODE PREVIOUS SHIFT.
[2021-11-20 04:40] LABS: BASOPHILS ABSOLUTE AUTO 0.04 K/mm3 (0.00-0.23); BASOPHILS PERCENT AUTO 1 % (0-2); EOSINOPHILS ABSOLUTE AUTO 0.09 K/mm3 (0.00-0.68); EOSINOPHILS PERCENT AUTO 1 % (0-6); Hematocrit 31.4 % (37.0-53.0); Hemoglobin 10.2 g/dL (13.5-17.5); IMMATURE GRAN PERCENT AUTO 1 % (0-1); LYMPHOCYTES ABSOLUTE AUTO 0.81 K/mm3 (0.84-5.20); LYMPHOCYTES PERCENT AUTO 11 % (21-46); MONOCYTES ABSOLUTE AUTO 0.44 K/mm3 (0.16-1.47); MONOCYTES PERCENT AUTO 6 % (4-13); Mean Corpuscular HGB 28.8 pg (26.0-34.0); Mean Corpuscular HGB Conc 32.5 g/dL (31.5-36.5); Mean Corpuscular Volume 89 fL (80-100); Mean Platelet Volume 9.5 fL (9.1-12.4); NEUTROPHILS ABSOLUTE AUTO 5.78 K/mm3 (1.96-9.15); NEUTROPHILS PERCENT AUTO 80 % (41-73); Platelet Count 167 K/mm3 (150-400); RDW Coefficient Variation 13.1 % (11.7-14.2); Red Blood Cell Count 3.54 M/mm3 (4.30-5.90); White Blood Cell Count 7.26 K/mm3 (4.00-11.30)
[2021-11-20 05:47] LABS: Albumin, Blood 1.8 g/dL (3.4-5.0); Albumin/Globulin Ratio 0.7 (0.8-1.8); Bilirubin, Total 0.4 mg/dL (0.1-1.0); Calcium, Blood 5.8 mg/dL (8.5-10.1); Creatinine, Blood 0.69 mg/dL (0.60-1.20); Globulin, Blood 2.6 g/dL (2.2-4.0); Potassium, Blood 2.5 mmol/L (3.5-5.5); Total Protein, Blood 4.4 g/dL (6.4-8.2)
--- NOTE | 2021-11-20 05:57 | NUR ---
SHIFT SUMMARY: PATIENT MAINTAINED O2 >90% ON 5L NC, OTHER VS WNL. PATIENT AMBULATES TO TOILET WITH SUPERVISION AND USES CALL LIGHT APPROPRIATELY. RECEIVED CRITICAL CALCIUM OF 5.8 THIS AM - NEW ORDERS FROM MD. PATIENT IS LOOKING FORWARD TO D/CING HOME TODAY. BED LOW WITH CALL LIGHT IN PLACE. WILL CONTINUE TO MONITOR AND REPORT TO ONCOMING RN.
--- NOTE | 2021-11-20 06:52 | NUR ---
CRITICAL VALUE: POTASSIUM 2.5 - RECEIVED NEW ORDERS FROM HOSPITALIST. IONIZED CALCIUM 1.13 AND RECEIVED MED ORDER FOR CALCIUM GLUCONATE.
--- NOTE | 2021-11-20 07:30 | NUR ---
ASSUMED CARE: PT IS SITTING UP IN BED AT TIME OF BEDSIDE REPORT. PT SATTING AT 93% ON 5L PER NC, SINUS RHYTHM IN 80'S, AND SBP IN 160'S. POTASSIUM RUNNING AT 10MEQ PER 100ML/HR THROUGH PICC IN RUDI. NO ACUTE NEEDS/DISTRESS AT THIS TIME, CALL LIGHT WITHIN REACH
--- NOTE | 2021-11-20 10:25 | NUR ---
REVIEWED FUSION OPERATOR'S HEAD TO TOE ASSESSMENT AND AGREE
--- NOTE | 2021-11-20 11:04 | NUR ---
OT AT BEDSIDE AND NOTED THAT PT DESATURATED TO [address] ROGERS AT BEDSIDE AND WAS MADE AWARE THAT PT'S O2 WAS INCREASED FROM 5L TO 7L WITH THIS EVENT. DR DISCUSSED WITH PT AND DECIDING TO KEEP PT IN HOUSE AT LEAST ONE MORE DAY WITH NO DC PLANS FOR TODAY
--- NOTE | 2021-11-20 12:47 | NUR ---
NOTICED THAT DR ROGERS ORDERED CALCIUM CHLORIDE FOR PATIENT. CALLED TO MAKE HIM AWARE OF CALCIUM GLUCONATE ORDERED THIS AM. DR STATES TO WAIT FOR LAB RECHECK BEFORE ADMINISTERING CALCIUM CHLORIDE AND TO CALL WITH RESULTS TO DETERMINE IF SECOND DOSE IS NEEDED. COMMUNICATED THIS TO HAND WOODWORKING SANDER WELL.
--- NOTE | 2021-11-20 14:08 | NUR ---
BLOOD DRAWN FROM PICC, SENT GREEN TOP TO LAB
[2021-11-20 14:30] LABS: Bun/Creatinine Ratio 22.1 (12.0-20.0); Creatinine, Blood 1.04 mg/dL (0.60-1.20); Potassium, Blood 4.2 mmol/L (3.5-5.5)
[2021-11-20 14:32] LABS: Calcium, Blood 8.8 mg/dL (8.5-10.1)
--- NOTE | 2021-11-20 17:30 | NUR ---
TRANSFER: GAVE REPORT TO RN NEHEMIAH ON MEDICAL FLOOR. PT WAS TRANSPORTED BY WHEELCHAIR ON 8L NC 02 TO MAINTAIN >95% SATURATION. PT'S PERSONAL AFFECTS, MEDICATIONS, AND BINDER WERE TAKEN TO NEW ROOM WELL. PT WAS RECEIVED BY RN NEHEMIAH IN ROOM 310, VSS UPON TRANSFER.
--- NOTE | 2021-11-20 18:44 | NUR ---
SHIFT SUMMARY PATIENT ARRIVED TO ROOM AT 1730. PATIENT IS IND IN ROOM WITH ASSISTANCE WITH LINES. PATIENT IS ALERT AND ORIENTED. PATIENT HAS HAD NO ACUTE EVENTS SINCE TRANSFER FROM PCU. WILL MONITOR UNTIL SHIFT CHANGE.
[2021-11-21] MEDS ORDERED: CARV6.25 PO (14:11)
[2021-11-21] MEDS ORDERED: CILO100 PO (14:11)
[2021-11-21] MEDS ORDERED: FURO40 PO (14:11)
--- NOTE | 2021-11-21 16:21 | NUR ---
DISCHARGE PATIENT TRANSPORTED VIA WHEELCHAIR TO PRIVATE VEHICLE. DISCHARGE INSTRUCTIONS EXPLAINED TO PATIENT AND . PATIENT STATED UNDERSTANDING. PACKET SENT WITH PATIENT. PICC LINE REMOVED BY CHARGE NURSE WITHOUT DIFFICULTY. PATIENT ON 5L OF OXYGEN, THIS IS BASELINE. PATIENT USED OWN PORTABLE TANK FOR RIDE HOME. MEDICATIONS FAXED TO PREFERRED PHARMACY. [facility] TO SCHEDULE FOLLOW UP APPOINTENT.
== END 2021-11-21 14:58 | disposition home health service (06) | DRG 871 ==
LOC: ER 00:06 → ICUE 02:33 → MEDS 02:33 → ICUE 11-15 08:54 → PCU 11-17 16:47 → MEDS 11-20 17:40
PROVIDERS: Emergency Medicine; Hospitalist; Internal Medicine; Internal Medicine Critical Care Medicine; Pharmacist; Student in an Organized Health Care Education/Training Program; ADMIT Internal Medicine
PROC: 5A09457 Assistance with Respiratory Ventilation, 24-96 Consecutive Hours, Continuous Positive Airway Pressure (ICD-10-PCS; principal; 2021-11-14)
PROC: 3E03329 Introduction of Other Anti-infective into Peripheral Vein, Percutaneous Approach (ICD-10-PCS; 2021-11-14)
PROC: 05HY33Z Insertion of Infusion Device into Upper Vein, Percutaneous Approach (ICD-10-PCS; 2021-11-14)
DX: A41.9 Sepsis, unspecified organism (principal); J96.22 Acute and chronic respiratory failure with hypercapnia; J96.21 Acute and chronic respiratory failure with hypoxia; I21.A1 Myocardial infarction type 2; J69.0 Pneumonitis due to inhalation of food and vomit; J18.9 Pneumonia, unspecified organism; E27.49 Other adrenocortical insufficiency; E87.2 Acidosis; I50.22 Chronic systolic (congestive) heart failure; Z20.822 Contact with and (suspected) exposure to COVID-19; R65.20 Severe sepsis without septic shock; I11.0 Hypertensive heart disease with heart failure; N40.0 Benign prostatic hyperplasia without lower urinary tract symptoms; K21.9 Gastro-esophageal reflux disease without esophagitis; J84.112 Idiopathic pulmonary fibrosis; D72.829 Elevated white blood cell count, unspecified; E03.9 Hypothyroidism, unspecified; E87.6 Hypokalemia; E83.51 Hypocalcemia; E11.51 Type 2 diabetes mellitus with diabetic peripheral angiopathy without gangrene; E78.5 Hyperlipidemia, unspecified; G89.4 Chronic pain syndrome; G47.33 Obstructive sleep apnea (adult) (pediatric); J43.9 Emphysema, unspecified; I25.10 Atherosclerotic heart disease of native coronary artery without angina pectoris; Z98.890 Other specified postprocedural states; Z79.51 Long term (current) use of inhaled steroids; Z79.84 Long term (current) use of oral hypoglycemic drugs; Z88.0 Allergy status to penicillin; Z88.6 Allergy status to analgesic agent; Z87.891 Personal history of nicotine dependence; Z79.02 Long term (current) use of antithrombotics/antiplatelets; Z79.899 Other long term (current) drug therapy
CPT/HCPCS: 0241U; 36415; 36569; 36600; 51702; 71045; 71260; 78452; 80048; 80053; 80061; 80202; 81001; 82330; 82803; 82947; 83605; 83735; 83880; 84100; 84145; 84439; 84443; 84484; 85025; 85027; 85520; 85610; 85730; 87040; 87449; 93005; 93010; 93017; 93306; 94640; 94644; 94660; 94664; 94760; 94762; 96365; 96366; 97110; 97116; 97162; 97166; 97530; 97535; 98960; 99285-25; A9270; A9500; C1751; C9113; J0280; J0456; J0610; J0692; J1644; J1650; J1720; J1940; J2060; J2785; J2930; J3010; J3370; J3480; J7040; J7050; J7060; J7120; Q9967

== ENCOUNTER 2021-11-28 04:59 | Emergency (ER) | payer MEDICARE, BC ==
[~2021-11-28] VITALS: Ht 172.7 cm; Wt 83.9 kg
[~2021-11-28 04:59] MED LIST changes: +ALEN70 PO; +CARV6.25 PO; +CILO100 PO; +FURO40 PO; +LISI5 PO; +Nitrostat0.3 MG SL
[2021-11-28 05:42] LABS: BASOPHILS ABSOLUTE AUTO 0.06 K/mm3 (0.00-0.23); BASOPHILS PERCENT AUTO 1 % (0-2); EOSINOPHILS PERCENT AUTO 0 % (0-6); Hematocrit 33.9 % (37.0-53.0); Hemoglobin 10.7 g/dL (13.5-17.5); IMMATURE GRAN ABSOLUTE AUTO 0.09 K/mm3 (0.00-0.10); IMMATURE GRAN PERCENT AUTO 1 % (0-1); LYMPHOCYTES ABSOLUTE AUTO 1.18 K/mm3 (0.84-5.20); LYMPHOCYTES PERCENT AUTO 15 % (21-46); MONOCYTES ABSOLUTE AUTO 0.49 K/mm3 (0.16-1.47); MONOCYTES PERCENT AUTO 6 % (4-13); Mean Corpuscular HGB 28.7 pg (26.0-34.0); Mean Corpuscular HGB Conc 31.6 g/dL (31.5-36.5); Mean Corpuscular Volume 91 fL (80-100); Mean Platelet Volume 9.5 fL (9.1-12.4); NEUTROPHILS ABSOLUTE AUTO 6.16 K/mm3 (1.96-9.15); NEUTROPHILS PERCENT AUTO 77 % (41-73); Platelet Count 172 K/mm3 (150-400); RDW Coefficient Variation 13.7 % (11.7-14.2); RDW Standard Deviation 45.5 fL (35.1-46.3); Red Blood Cell Count 3.73 M/mm3 (4.30-5.90); White Blood Cell Count 7.98 K/mm3 (4.00-11.30)
[2021-11-28 06:02] LABS: Albumin, Blood 2.9 g/dL (3.4-5.0); Albumin/Globulin Ratio 0.8 (0.8-1.8); Bilirubin, Total 0.3 mg/dL (0.1-1.0); Bun/Creatinine Ratio 19.7 (12.0-20.0); Calcium, Blood 9.1 mg/dL (8.5-10.1); Creatinine, Blood 0.91 mg/dL (0.60-1.20); Globulin, Blood 3.6 g/dL (2.2-4.0); Potassium, Blood 4.3 mmol/L (3.5-5.5); Total Protein, Blood 6.5 g/dL (6.4-8.2)
[2021-11-28] MEDS ORDERED: ALBU2.5V5 NEB (09:46)
== END 2021-11-28 10:10 | disposition home or self-care (01) ==
LOC: ER 04:59
PROVIDERS: Student in an Organized Health Care Education/Training Program
DX: J84.10 Pulmonary fibrosis, unspecified (principal); I11.0 Hypertensive heart disease with heart failure; I50.9 Heart failure, unspecified; J43.9 Emphysema, unspecified; I25.10 Atherosclerotic heart disease of native coronary artery without angina pectoris; E11.9 Type 2 diabetes mellitus without complications; Z79.899 Other long term (current) drug therapy; Z79.84 Long term (current) use of oral hypoglycemic drugs; Z79.02 Long term (current) use of antithrombotics/antiplatelets
CPT/HCPCS: 71045; 80053; 83880; 84484; 85025; 93005; 93010; 94640; 94664; 96374; 99284-25; J2930

== ENCOUNTER 2021-12-18 18:53 | Inpatient (IN) | payer MEDICARE, BC ==
[~2021-12-18] VITALS: Ht 172.7 cm; Wt 86.8 kg
[~2021-12-18 18:53] MED LIST changes: -BUME1 PO; -METO50ER PO; -SPIRONOLACTONE25 MG PO
[2021-12-18] MEDS ORDERED: SPIRONOLACTONE25 MG PO ×2 (21:21)
[2021-12-18] MEDS ORDERED: METO50ER PO ×2 (21:22)
[2021-12-19 05:23] LABS: BASOPHILS ABSOLUTE AUTO 0.04 K/mm3 (0.00-0.23); BASOPHILS PERCENT AUTO 1 % (0-2); EOSINOPHILS ABSOLUTE AUTO 0.15 K/mm3 (0.00-0.68); EOSINOPHILS PERCENT AUTO 2 % (0-6); Hematocrit 33.4 % (37.0-53.0); Hemoglobin 10.8 g/dL (13.5-17.5); IMMATURE GRAN ABSOLUTE AUTO 0.07 K/mm3 (0.00-0.10); IMMATURE GRAN PERCENT AUTO 1 % (0-1); LYMPHOCYTES ABSOLUTE AUTO 1.29 K/mm3 (0.84-5.20); LYMPHOCYTES PERCENT AUTO 15 % (21-46); MONOCYTES ABSOLUTE AUTO 0.69 K/mm3 (0.16-1.47); MONOCYTES PERCENT AUTO 8 % (4-13); Mean Corpuscular HGB 28.7 pg (26.0-34.0); Mean Corpuscular HGB Conc 32.3 g/dL (31.5-36.5); Mean Corpuscular Volume 89 fL (80-100); Mean Platelet Volume 10.1 fL (9.1-12.4); NEUTROPHILS ABSOLUTE AUTO 6.53 K/mm3 (1.96-9.15); NEUTROPHILS PERCENT AUTO 74 % (41-73); Platelet Count 136 K/mm3 (150-400); RDW Coefficient Variation 13.6 % (11.7-14.2); RDW Standard Deviation 44.3 fL (35.1-46.3); Red Blood Cell Count 3.76 M/mm3 (4.30-5.90); White Blood Cell Count 8.77 K/mm3 (4.00-11.30)
[2021-12-19 05:49] LABS: Albumin, Blood 2.7 g/dL (3.4-5.0); Albumin/Globulin Ratio 0.8 (0.8-1.8); Bilirubin, Total 0.5 mg/dL (0.1-1.0); Bun/Creatinine Ratio 19.5 (12.0-20.0); Calcium, Blood 9.1 mg/dL (8.5-10.1); Creatinine, Blood 0.92 mg/dL (0.60-1.20); Globulin, Blood 3.6 g/dL (2.2-4.0); Potassium, Blood 3.6 mmol/L (3.5-5.5); Total Protein, Blood 6.3 g/dL (6.4-8.2)
--- NOTE | 2021-12-19 07:39 | NUR ---
PT ADMITTED THIS SHIFT WITH N STEMI-NO C/O AT THIS TIME. RESTING. VOIDING .
--- NOTE | 2021-12-19 18:12 | NUR ---
PT DENIES ANY PAIN OR SOB. PTS HERE TO VISIT AND BOTH ARE AWARE OF PLAN FOR STRESS TEST IN THE MORNING. PT WITH OCCASIONAL EXPRESSIVE APHASIA, COOPERTIVE AND FOLLOWS INSTRUCTIONS APPROPRIATELY. PT AWARE OF NEED FOR NPO AFTER MIDNITE FOR STRESS TEST
--- NOTE | 2021-12-19 21:15 | NUR ---
RECEIVED REPORT AND ASSUMED CARE OF PT. HE IS LYING IN BED WITH HIS EYES CLOSED AND EVEN, UNLABORED RESPIRATIONS. CONTINUOUS PULSE OX AND HEAD OF MERCHANDISE BUYING IN PLACE.
--- NOTE | 2021-12-20 04:44 | NUR ---
BP 94/62 ON RIGHT ARM, 70's/30's ON LEFT. PT ASYMPTOMATIC. REQUESTED PT TO USE THE URINAL INSTEAD OF AMBULATING TO THE BATHROOM, PT AGREEABLE. ON-CALL PHYSICIAN NOTIFIED, NO NEW ORDERS AT THIS TIME. PT RESTING COMFORTABLY IN BED WITH THE CALL LIGHT IN REACH. CONTINUOUS PULSE OXIMETERY IN PLACE, MAINTAINING SATS >88% ON 3 L VIA NC.
--- NOTE | 2021-12-20 05:12 | NUR ---
SHIFT SUMMARY: DONYA IS A&OX4. BP TRENDING DOWN, PT DENIES ANY SYMPTOMS. REQUESTED PT TO CALL STAFF IF NEEDS TO GET OUT OF BED, AND TO NOT AMBULATE ON OWN. PT STATED WOULD COMPLY. HE IS URINATING WITHOUT DIFFICULTY, WAS MADE NPO AT MIDNIGHT, AND IS MAINTAINING SATS >88% ON 3 L VIA NC, CONTINUOUS PULSE OXIMETERY IN PLACE. ATTENDS IN PLACE FOR STRESS INCONTINENCE. HE DENIED ANY N/V PRIOR TO BEING MADE NPO, FLUID RESTRICTION IN PLACE PRIOR ALSO. HE IS LYING IN BED WITH THE CALL LIGHT IN REACH. WILL REPORT TO DAY SHIFT RN.
[2021-12-20] MEDS ORDERED: CARV6.25 PO ×2 (10:30)
[2021-12-20] MEDS ORDERED: BUME1 PO ×2 (10:30)
--- NOTE | 2021-12-20 14:42 | NUR ---
DISCHARGE SUMMARY S/P CHEST PAIN, A/O X4, VSS, TOLERATING PO, AMBULATING INDEPENDENTLY, VOIDING WELL. DISCUSSED DISCHARGE INFORMATION WITH THE PATIENT INCLUDING DISCHARGE INSTRUCTION, MEDICATION CHANGES, AND FOLLO APPOINTMENTS. REMOVED ALL IV ACCESS DEVICES PRIOR TO DISCHARGE, PT HAD NO QUESTIONS AT THIS TIME, CONTACT INFORMATION GIVEN SHOULD ANY QUESTIONS/CONCERNS COME UP AT A LATER TIME. PT ESCORTED OUT VIA WC TO PRIVATE AUTO TO GO HOME.
== END 2021-12-20 13:24 | disposition home or self-care (01) | DRG 281 ==
LOC: ER 18:53 → SURS 18:54
PROVIDERS: Family Medicine; ADMIT Internal Medicine
DX: I21.4 Non-ST elevation (NSTEMI) myocardial infarction (principal); I50.22 Chronic systolic (congestive) heart failure; J84.112 Idiopathic pulmonary fibrosis; I11.0 Hypertensive heart disease with heart failure; E11.9 Type 2 diabetes mellitus without complications; J43.9 Emphysema, unspecified; I25.10 Atherosclerotic heart disease of native coronary artery without angina pectoris; D64.9 Anemia, unspecified; Z77.090 Contact with and (suspected) exposure to asbestos; F32.A Depression, unspecified; E03.9 Hypothyroidism, unspecified; N40.0 Benign prostatic hyperplasia without lower urinary tract symptoms; G47.33 Obstructive sleep apnea (adult) (pediatric); Z96.642 Presence of left artificial hip joint; Z90.89 Acquired absence of other organs; Z90.49 Acquired absence of other specified parts of digestive tract; Z98.890 Other specified postprocedural states; Z88.0 Allergy status to penicillin; Z88.8 Allergy status to other drugs, medicaments and biological substances; Z79.84 Long term (current) use of oral hypoglycemic drugs; Z79.899 Other long term (current) drug therapy
CPT/HCPCS: 36415; 80053; 82947; 84443; 84484; 85025; 93308; 93321; 94640; 94664; 94760; 94762; 96372; 96374; 96376; 99285-25; A9270; G0378; J1650; J1940

== ENCOUNTER → 2021-12-18 | Outpatient (CLI) | payer MEDICARE, BC ==
[~2021-12-18] MED LIST changes: +ALBU2.5V5 NEB; +BUME1 PO; +METO50ER PO; +SPIRONOLACTONE25 MG PO
[2021-12-18 17:37] LABS: BASOPHILS ABSOLUTE AUTO 0.05 K/mm3 (0.00-0.23); BASOPHILS PERCENT AUTO 1 % (0-2); EOSINOPHILS PERCENT AUTO 0 % (0-6); Hematocrit 35.1 % (37.0-53.0); Hemoglobin 11.4 g/dL (13.5-17.5); IMMATURE GRAN ABSOLUTE AUTO 0.05 K/mm3 (0.00-0.10); IMMATURE GRAN PERCENT AUTO 1 % (0-1); LYMPHOCYTES ABSOLUTE AUTO 0.66 K/mm3 (0.84-5.20); LYMPHOCYTES PERCENT AUTO 7 % (21-46); MONOCYTES ABSOLUTE AUTO 0.62 K/mm3 (0.16-1.47); MONOCYTES PERCENT AUTO 7 % (4-13); Mean Corpuscular HGB 28.6 pg (26.0-34.0); Mean Corpuscular HGB Conc 32.5 g/dL (31.5-36.5); Mean Corpuscular Volume 88 fL (80-100); Mean Platelet Volume 10.1 fL (9.1-12.4); NEUTROPHILS ABSOLUTE AUTO 7.63 K/mm3 (1.96-9.15); NEUTROPHILS PERCENT AUTO 85 % (41-73); Platelet Count 154 K/mm3 (150-400); RDW Coefficient Variation 13.9 % (11.7-14.2); RDW Standard Deviation 44.2 fL (35.1-46.3); Red Blood Cell Count 3.98 M/mm3 (4.30-5.90); White Blood Cell Count 9.01 K/mm3 (4.00-11.30)
[2021-12-18 17:49] LABS: Albumin/Globulin Ratio 0.8 (0.8-1.8); Bilirubin, Total 0.2 mg/dL (0.1-1.0); Bun/Creatinine Ratio 16.2 (12.0-20.0); Calcium, Blood 9.1 mg/dL (8.5-10.1); Creatinine, Blood 1.05 mg/dL (0.60-1.20); Globulin, Blood 3.8 g/dL (2.2-4.0); Potassium, Blood 3.7 mmol/L (3.5-5.5); Total Protein, Blood 6.8 g/dL (6.4-8.2)
== END | disposition home or self-care (01) ==
LOC: LAB SHORT 17:31 → LAB 17:31
PROVIDERS: Physician Assistant
DX: R07.9 Chest pain, unspecified (principal)
CPT/HCPCS: 80053; 83880; 84484; 85025

== ENCOUNTER 2022-02-05 13:35 | Emergency (ER) | payer MEDICARE, BC ==
[~2022-02-05] VITALS: Ht 172.7 cm; Wt 86.6 kg
[~2022-02-05 13:35] MED LIST changes: +BUME1 PO; +METO50ER PO; +SPIRONOLACTONE25 MG PO
[2022-02-05 14:44] LABS: BASOPHILS ABSOLUTE AUTO 0.04 K/mm3 (0.00-0.23); BASOPHILS PERCENT AUTO 1 % (0-2); EOSINOPHILS PERCENT AUTO 0 % (0-6); Hematocrit 35.8 % (37.0-53.0); Hemoglobin 11.9 g/dL (13.5-17.5); IMMATURE GRAN ABSOLUTE AUTO 0.07 K/mm3 (0.00-0.10); IMMATURE GRAN PERCENT AUTO 1 % (0-1); LYMPHOCYTES ABSOLUTE AUTO 0.78 K/mm3 (0.84-5.20); LYMPHOCYTES PERCENT AUTO 11 % (21-46); MONOCYTES ABSOLUTE AUTO 0.75 K/mm3 (0.16-1.47); MONOCYTES PERCENT AUTO 11 % (4-13); Mean Corpuscular HGB 29.5 pg (26.0-34.0); Mean Corpuscular HGB Conc 33.2 g/dL (31.5-36.5); Mean Corpuscular Volume 89 fL (80-100); Mean Platelet Volume 9.7 fL (9.1-12.4); NEUTROPHILS ABSOLUTE AUTO 5.45 K/mm3 (1.96-9.15); NEUTROPHILS PERCENT AUTO 77 % (41-73); Platelet Count 127 K/mm3 (150-400); RDW Coefficient Variation 13.7 % (11.7-14.2); RDW Standard Deviation 44.6 fL (35.1-46.3); Red Blood Cell Count 4.04 M/mm3 (4.30-5.90); White Blood Cell Count 7.09 K/mm3 (4.00-11.30)
[2022-02-05 15:05] LABS: Albumin, Blood 3.4 g/dL (3.4-5.0); Albumin/Globulin Ratio 0.8 (0.8-1.8); Bilirubin, Total 0.4 mg/dL (0.1-1.0); Bun/Creatinine Ratio 27.9 (12.0-20.0); Calcium, Blood 9.7 mg/dL (8.5-10.1); Creatinine, Blood 0.82 mg/dL (0.60-1.20); Globulin, Blood 4.5 g/dL (2.2-4.0); Potassium, Blood 4.2 mmol/L (3.5-5.5); Total Protein, Blood 7.9 g/dL (6.4-8.2)
[2022-02-05 15:10] LABS: Source, Urine Clean Catch
[2022-02-05 15:23] LABS: Appearance, Urine Clear (Clear); Bilirubin, Urine Neg (Neg); Blood, Urine 1+ (Neg); Color, Urine Yellow (P-Yellow); Glucose Qualitative, Urine 4+ (Neg); Ketones, Urine Neg (Neg); Leukocyte Esterase, Urine Neg (Neg); Nitrite, Urine Neg (Neg); Protein, Urine 3+ (Neg); Urobilinogen, Urine NORM (Normal)
[2022-02-05 16:00] LABS: Bacteria Few /hpf; Hyaline Casts 0-2 /lpf (0-2); Squamous Epithelial Cells Rare /hpf (Few); White Blood Cells, Urine 0-2 /hpf (0-5)
[2022-02-05] MEDS ORDERED: BUME1 PO (17:09)
[2022-02-05] MEDS ORDERED: ATOR20 PO (17:09)
[2022-02-05] MEDS ORDERED: ASPI81CH PO (17:09)
[2022-02-05] MEDS ORDERED: CLOP75 PO (17:10)
[2022-02-05] MEDS ORDERED: CARV6.25 PO (17:10)
[2022-02-05] MEDS ORDERED: GABA300 PO (17:10)
[2022-02-05] MEDS ORDERED: HYDCOR10 PO (17:11)
[2022-02-05] MEDS ORDERED: Norco 7.5-3251 EACH PO (17:11)
[2022-02-05] MEDS ORDERED: METF500 PO (17:12)
[2022-02-05] MEDS ORDERED: LEVSOD75 PO (17:12)
[2022-02-05] MEDS ORDERED: NITR.4SL SL (17:13)
[2022-02-05] MEDS ORDERED: LANS30EC PO (17:13)
[2022-02-05] MEDS ORDERED: OLME20 PO (17:13)
[2022-02-05] MEDS ORDERED: TAMS.4ER PO ×2 (17:14→17:55)
[2022-02-05] MEDS ORDERED: PRAM.125 PO (17:14)
[2022-02-05] MEDS ORDERED: TRAZ50 PO (17:14)
[2022-02-05] MEDS ORDERED: SPIR25 PO (17:14)
[2022-02-05] MEDS ORDERED: Ventolin/Prove6.7 GM INH (17:15)
[2022-02-05] MEDS ORDERED: VENL150ER PO (17:15)
== END 2022-02-05 18:20 | disposition home or self-care (01) ==
LOC: ER 13:35
PROVIDERS: Physician Assistant
DX: N40.1 Benign prostatic hyperplasia with lower urinary tract symptoms (principal); R39.15 Urgency of urination; R35.0 Frequency of micturition; J43.9 Emphysema, unspecified; I25.10 Atherosclerotic heart disease of native coronary artery without angina pectoris; I11.0 Hypertensive heart disease with heart failure; I50.9 Heart failure, unspecified; E03.9 Hypothyroidism, unspecified; I25.2 Old myocardial infarction; Z86.718 Personal history of other venous thrombosis and embolism; Z79.899 Other long term (current) drug therapy; Z79.02 Long term (current) use of antithrombotics/antiplatelets; Z79.84 Long term (current) use of oral hypoglycemic drugs; Z88.6 Allergy status to analgesic agent; Z88.0 Allergy status to penicillin
CPT/HCPCS: 36415; 80053; 81001; 83880; 85025; 99283; A9270

== ENCOUNTER 2022-02-09 03:54 | Observation (INO) | payer MEDICARE, BC ==
[~2022-02-09] VITALS: Ht 172.7 cm; Wt 90.4 kg
[~2022-02-09 03:54] MED LIST changes: +LANS30EC PO; +LEVSOD75 PO; +METF500 PO; +NITR.4SL SL; +Norco 7.5-3251 EACH PO; +OLME20 PO; +PRAM.125 PO; +SPIR25 PO; +TAMS.4ER PO
[2022-02-09 04:42] LABS: BASOPHILS ABSOLUTE AUTO 0.07 K/mm3 (0.00-0.23); BASOPHILS PERCENT AUTO 1 % (0-2); EOSINOPHILS PERCENT AUTO 0 % (0-6); Hemoglobin 10.1 g/dL (13.5-17.5); IMMATURE GRAN ABSOLUTE AUTO 0.07 K/mm3 (0.00-0.10); IMMATURE GRAN PERCENT AUTO 1 % (0-1); LYMPHOCYTES ABSOLUTE AUTO 0.91 K/mm3 (0.84-5.20); LYMPHOCYTES PERCENT AUTO 9 % (21-46); MONOCYTES ABSOLUTE AUTO 1.09 K/mm3 (0.16-1.47); MONOCYTES PERCENT AUTO 11 % (4-13); Mean Corpuscular HGB 29.4 pg (26.0-34.0); Mean Corpuscular HGB Conc 32.6 g/dL (31.5-36.5); Mean Corpuscular Volume 90 fL (80-100); Mean Platelet Volume 9.7 fL (9.1-12.4); NEUTROPHILS ABSOLUTE AUTO 7.66 K/mm3 (1.96-9.15); NEUTROPHILS PERCENT AUTO 78 % (41-73); Platelet Count 156 K/mm3 (150-400); RDW Coefficient Variation 13.7 % (11.7-14.2); RDW Standard Deviation 44.7 fL (35.1-46.3); Red Blood Cell Count 3.43 M/mm3 (4.30-5.90)
[2022-02-09 04:56] LABS: Albumin/Globulin Ratio 0.7 (0.8-1.8); Bilirubin, Total 0.5 mg/dL (0.1-1.0); Bun/Creatinine Ratio 32.1 (12.0-20.0); Calcium, Blood 8.7 mg/dL (8.5-10.1); Creatinine, Blood 0.93 mg/dL (0.60-1.20); Globulin, Blood 4.1 g/dL (2.2-4.0); Potassium, Blood 5.4 mmol/L (3.5-5.5); Total Protein, Blood 7.1 g/dL (6.4-8.2)
[2022-02-09 05:09] LABS: Source, Urine Clean Catch
[2022-02-09 05:11] LABS: Influenza A, PCR NEGATIVE (NEGATIVE); Influenza B, PCR NEGATIVE (NEGATIVE); Resp Syncytial Virus, PCR NEGATIVE (NEGATIVE); SARS-Cov-2 (COVID-19) PCR, MMC NEGATIVE (NEGATIVE)
[2022-02-09 05:19] LABS: Appearance, Urine Clear (Clear); Bilirubin, Urine Neg (Neg); Blood, Urine 1+ (Neg); Color, Urine Yellow (P-Yellow); Glucose Qualitative, Urine Neg (Neg); Ketones, Urine Neg (Neg); Leukocyte Esterase, Urine Neg (Neg); Nitrite, Urine Neg (Neg); Protein, Urine 3+ (Neg); Specific Gravity, Urine 1.015 (1.003-1.022); Urobilinogen, Urine NORM (Normal)
[2022-02-09 05:49] LABS: Bacteria Not Seen /hpf; Red Blood Cells, Urine 0-2 /hpf (0-2); Squamous Epithelial Cells Not Seen /hpf (Few); White Blood Cells, Urine Not Seen /hpf (0-5)
[2022-02-09] MEDS ORDERED: ESBRIET801 MG PO (12:35)
--- NOTE | 2022-02-09 19:48 | NUR ---
SHIFT SUMMARY/ADMISSION NOTE PT ARRIVED TO MEDICAL FLOOR FROM ED AT APPRO 1500. PT IS AxOx3-4 WITH INTERMITTENT CONFUSION/FORGETFULNESS. PT IS SIGNIFICANTLY SOB WITH ANY ACTIVITY INCLUDING USING THE URINAL AT BEDSIDE OR COUGHING. PT DESATS DOWN TO 75-80%. AT REST PATIENT IS BREATHING WITHOUT DIFFICUTLY ON 5L O2 VIA NC- BASELINE IN 3L CONTINUOUS. CONT BIOX IN PLACE. ADMISSION NOT COMPLETE. NOC NURSE NOTIFIED. PT CURRENTLY RESTING IN BED, WATCHING TV. CALL LIGHT IN REACH. DENIES ANY NEEDS AT THIS TIME.
--- NOTE | 2022-02-10 04:44 | NUR ---
SHIFT SUMMARY A/OX3, FORGETFUL. COMPLIANT WITH CPAP T/O NIGHT, CONT BIOX IN PLACE. DYSPNEIC WITH ANY EXERTION. IND WITH URINAL AT BEDSIDE. POSITIVE BLOOD CULTURES RECIEVED THIS SHIFT, HOSE TENDER PROVIDER NOTIFIED, NEW ORDERS FOR VANCO. VSS, NO ACUTE CHANGES AT THIS TIME. BED IN LOWEST POSITION WITH CALL LIGHT IN REACH. WILL CONTINUE TO MONITOR AND REPORT TO ONCOMING RN.
[2022-02-10 06:08] LABS: BASOPHILS ABSOLUTE AUTO 0.04 K/mm3 (0.00-0.23); BASOPHILS PERCENT AUTO 1 % (0-2); EOSINOPHILS PERCENT AUTO 0 % (0-6); Hematocrit 30.9 % (37.0-53.0); IMMATURE GRAN ABSOLUTE AUTO 0.07 K/mm3 (0.00-0.10); IMMATURE GRAN PERCENT AUTO 1 % (0-1); LYMPHOCYTES ABSOLUTE AUTO 0.73 K/mm3 (0.84-5.20); LYMPHOCYTES PERCENT AUTO 9 % (21-46); MONOCYTES ABSOLUTE AUTO 0.87 K/mm3 (0.16-1.47); MONOCYTES PERCENT AUTO 10 % (4-13); Mean Corpuscular HGB 29.2 pg (26.0-34.0); Mean Corpuscular HGB Conc 32.4 g/dL (31.5-36.5); Mean Corpuscular Volume 90 fL (80-100); Mean Platelet Volume 9.3 fL (9.1-12.4); NEUTROPHILS PERCENT AUTO 80 % (41-73); Platelet Count 155 K/mm3 (150-400); RDW Coefficient Variation 13.9 % (11.7-14.2); RDW Standard Deviation 45.1 fL (35.1-46.3); Red Blood Cell Count 3.43 M/mm3 (4.30-5.90); White Blood Cell Count 8.51 K/mm3 (4.00-11.30)
[2022-02-10 06:43] LABS: Albumin, Blood 2.9 g/dL (3.4-5.0); Anion Gap 5 mmol/L (6-16); Blood Urea Nitrogen 22 mg/dL (8-24); Bun/Creatinine Ratio 24.1 (12.0-20.0); CO2, Blood 30 mmol/L (21-32); Calcium, Blood 9.4 mg/dL (8.5-10.1); Chloride, Blood 101 mmol/L (98-108); Creatinine, Blood 0.91 mg/dL (0.60-1.20); Glomerular Filtration Rate 87 (60-); Glucose, Blood 109 mg/dL (70-99); Magnesium, Blood 1.6 mg/dL (1.6-2.4); Phosphorus, Blood 3.3 mg/dL (2.5-4.9); Potassium, Blood 4.7 mmol/L (3.5-5.5); Sodium, Blood 136 mmol/L (136-145)
--- NOTE | 2022-02-10 16:29 | NUR ---
SHIFT SUMMARY PATIENT SOMETIMES FORGETFUL. DESATS WITH EXERTIONS IMPROVED THROUGHOUT DAY. HIGH FLOW HUMID NC AT 5L AT THIS TIME. TOLRATING ADA DIET AND LIQUIDS. VOIDING WELL, USES URINAL. POSITIVE BLOOD CULTURE GETTING IV VANCO. SPOUSE AT BEDSIDE IN AFTERNOON. WILL CONTINUE RESP SUPPORT AND IV ABX.
[2022-02-11 04:28] LABS: BASOPHILS ABSOLUTE AUTO 0.06 K/mm3 (0.00-0.23); BASOPHILS PERCENT AUTO 1 % (0-2); EOSINOPHILS ABSOLUTE AUTO 0.26 K/mm3 (0.00-0.68); EOSINOPHILS PERCENT AUTO 4 % (0-6); Hematocrit 28.6 % (37.0-53.0); Hemoglobin 9.5 g/dL (13.5-17.5); IMMATURE GRAN ABSOLUTE AUTO 0.05 K/mm3 (0.00-0.10); IMMATURE GRAN PERCENT AUTO 1 % (0-1); LYMPHOCYTES ABSOLUTE AUTO 0.73 K/mm3 (0.84-5.20); LYMPHOCYTES PERCENT AUTO 10 % (21-46); MONOCYTES ABSOLUTE AUTO 0.67 K/mm3 (0.16-1.47); MONOCYTES PERCENT AUTO 10 % (4-13); Mean Corpuscular HGB 29.7 pg (26.0-34.0); Mean Corpuscular HGB Conc 33.2 g/dL (31.5-36.5); Mean Corpuscular Volume 89 fL (80-100); Mean Platelet Volume 8.9 fL (9.1-12.4); NEUTROPHILS ABSOLUTE AUTO 5.24 K/mm3 (1.96-9.15); NEUTROPHILS PERCENT AUTO 75 % (41-73); Platelet Count 156 K/mm3 (150-400); RDW Coefficient Variation 14.2 % (11.7-14.2); RDW Standard Deviation 45.9 fL (35.1-46.3); White Blood Cell Count 7.01 K/mm3 (4.00-11.30)
[2022-02-11 04:51] LABS: Albumin, Blood 2.6 g/dL (3.4-5.0); Anion Gap 5 mmol/L (6-16); Blood Urea Nitrogen 30 mg/dL (8-24); Bun/Creatinine Ratio 28.8 (12.0-20.0); CO2, Blood 30 mmol/L (21-32); Calcium, Blood 9.1 mg/dL (8.5-10.1); Chloride, Blood 101 mmol/L (98-108); Creatinine, Blood 1.04 mg/dL (0.60-1.20); Glomerular Filtration Rate 74 (60-); Glucose, Blood 140 mg/dL (70-99); Magnesium, Blood 2.1 mg/dL (1.6-2.4); Phosphorus, Blood 4.1 mg/dL (2.5-4.9); Potassium, Blood 4.6 mmol/L (3.5-5.5); Sodium, Blood 136 mmol/L (136-145)
[2022-02-11 04:54] LABS: Vancomycin, Trough 18.1 ug/mL (5.0-10.0)
--- NOTE | 2022-02-11 05:52 | NUR ---
SHIFT SUMMARY A/OX 3-4, FORGETFUL AT TIMES. 1P ASSIST TO BSC/URINAL AT BEDSIDE. COMPLIANT WITH CPAP T/O NIGHT, CONT BIOX IN PLACE WITH SATS GREATER THAN 90. DESATS QUICKLY WITH EVEN SMALL AMOUNTS OF EXERTION. VSS, NO ACUTE CHANGES AT THIS TIME. BED IN LOWEST POSITION WITH CALL LIGHT IN REACH. WILL CONTINUE TO MONITOR AND REPORT TO ONCOMING RN.
--- NOTE | 2022-02-11 15:35 | NUR ---
DISCHARGE PT DISCHARGED @ THIS TIME. 2 IV'S REMOVED, TELE REMOVED. PT A&O 4 AND @ BEDSIDE, BOTH PROVIDED W/ WRITTEN AND VERBAL DIRECTION, BOTH VERBALIZED UNDERSTANDING. JENNA CONTACTED FOR INCREASED O2 NEEDS/ LARGER CONCENTRATER, DROPPED OFF PORTABLE PRE D/C. ESCOURTED OUT VIA WC, PROVIDED TRANSPORT.
== END 2022-02-11 15:39 | disposition home health service (06) ==
LOC: ER 03:54 → MEDS 03:55
PROVIDERS: Emergency Medicine; Family Medicine; ADMIT Family Medicine
DX: J96.21 Acute and chronic respiratory failure with hypoxia (principal); J84.112 Idiopathic pulmonary fibrosis; I11.0 Hypertensive heart disease with heart failure; I50.20 Unspecified systolic (congestive) heart failure; I95.1 Orthostatic hypotension; E87.2 Acidosis; N40.0 Benign prostatic hyperplasia without lower urinary tract symptoms; E11.9 Type 2 diabetes mellitus without complications; J43.9 Emphysema, unspecified; I25.10 Atherosclerotic heart disease of native coronary artery without angina pectoris; E03.9 Hypothyroidism, unspecified; I25.2 Old myocardial infarction; G47.33 Obstructive sleep apnea (adult) (pediatric); Z20.822 Contact with and (suspected) exposure to COVID-19; Z88.0 Allergy status to penicillin; Z88.6 Allergy status to analgesic agent; Z79.82 Long term (current) use of aspirin; Z79.899 Other long term (current) drug therapy; Z79.02 Long term (current) use of antithrombotics/antiplatelets; Z79.890 Hormone replacement therapy; Z79.84 Long term (current) use of oral hypoglycemic drugs
CPT/HCPCS: 0241U; 36415; 71045; 74177; 80053; 80069; 80202; 81001; 82947; 83605; 83735; 83880; 84145; 85025; 87040; 93005; 93010; 94640; 94660; 94664; 94761; 94762; 96365; 96366; 96367; 96372; 96374-59; 96375-59; 97110; 97162; 97166; 97530; 97535; 98960; 99285-25; A9270; G0378; J1644; J2405; J3370; J3475; J7030; J7050; Q9967

== ENCOUNTER 2022-08-19 15:47 | Emergency (ER) | payer MEDICARE ==
[~2022-08-19] VITALS: Ht 172.7 cm; Wt 88.5 kg
[~2022-08-19 15:47] MED LIST changes: +Pepcid20 MG PO
[2022-08-19] MEDS ORDERED: METPRE4DP PO (18:26)
[2022-08-19] MEDS ORDERED: OXYC5 PO (18:26)
[2022-08-19] MEDS ORDERED: ACYC800 PO (18:26)
== END 2022-08-19 18:51 | disposition home or self-care (01) ==
LOC: ER 15:47
DX: B02.9 Zoster without complications (principal); I11.0 Hypertensive heart disease with heart failure; J43.9 Emphysema, unspecified; I25.10 Atherosclerotic heart disease of native coronary artery without angina pectoris; E11.9 Type 2 diabetes mellitus without complications; I50.9 Heart failure, unspecified; Z87.891 Personal history of nicotine dependence
CPT/HCPCS: 99282; A9270; J7512

== ENCOUNTER 2022-08-27 16:51 | Emergency (ER) | payer MEDICARE ==
[~2022-08-27] VITALS: Ht 172.7 cm; Wt 86.6 kg
[~2022-08-27 16:51] MED LIST changes: +ACYC800 PO; +METPRE4DP PO; +ONDA4ODT MM; +OXYC5 PO
[2022-08-27 17:21] LABS: BASOPHILS ABSOLUTE AUTO 0.05 K/mm3 (0.00-0.23); BASOPHILS PERCENT AUTO 0 % (0-2); EOSINOPHILS PERCENT AUTO 0 % (0-6); Hematocrit 37.9 % (37.0-53.0); Hemoglobin 12.4 g/dL (13.5-17.5); IMMATURE GRAN ABSOLUTE AUTO 0.09 K/mm3 (0.00-0.10); IMMATURE GRAN PERCENT AUTO 1 % (0-1); LYMPHOCYTES ABSOLUTE AUTO 1.94 K/mm3 (0.84-5.20); LYMPHOCYTES PERCENT AUTO 17 % (21-46); MONOCYTES ABSOLUTE AUTO 0.83 K/mm3 (0.16-1.47); MONOCYTES PERCENT AUTO 7 % (4-13); Mean Corpuscular HGB 29.7 pg (26.0-34.0); Mean Corpuscular HGB Conc 32.7 g/dL (31.5-36.5); Mean Corpuscular Volume 91 fL (80-100); Mean Platelet Volume 9.5 fL (9.1-12.4); NEUTROPHILS ABSOLUTE AUTO 8.72 K/mm3 (1.96-9.15); NEUTROPHILS PERCENT AUTO 75 % (41-73); Platelet Count 145 K/mm3 (150-400); RDW Coefficient Variation 12.6 % (11.7-14.2); RDW Standard Deviation 41.6 fL (35.1-46.3); Red Blood Cell Count 4.17 M/mm3 (4.30-5.90); White Blood Cell Count 11.63 K/mm3 (4.00-11.30)
[2022-08-27 17:40] LABS: Albumin, Blood 3.4 g/dL (3.4-5.0); Albumin/Globulin Ratio 0.8 (0.8-1.8); Bilirubin, Total 0.3 mg/dL (0.1-1.0); Bun/Creatinine Ratio 21.9 (12.0-20.0); Calcium, Blood 9.6 mg/dL (8.5-10.1); Creatinine, Blood 0.96 mg/dL (0.60-1.20); Potassium, Blood 3.9 mmol/L (3.5-5.5); Total Protein, Blood 7.4 g/dL (6.4-8.2)
[2022-08-27 19:14] LABS: Source, Urine Clean Catch
[2022-08-27 19:19] LABS: Appearance, Urine Clear (Clear); Bilirubin, Urine Neg (Neg); Blood, Urine Neg (Neg); Color, Urine Yellow (P-Yellow); Glucose Qualitative, Urine 3+ (Neg); Ketones, Urine Neg (Neg); Leukocyte Esterase, Urine 2+ (Neg); Nitrite, Urine Neg (Neg); Protein, Urine 3+ (Neg); Urobilinogen, Urine NORM (Normal)
[2022-08-27 19:51] LABS: Bacteria Mod /hpf; Squamous Epithelial Cells Few /hpf (Few); Transitional Epithelial Cells Rare /hpf (0-Rare); White Blood Cells, Urine 25-50 /hpf (0-5); Yeast/Fungi Urine Many /hpf
[2022-08-27] MEDS ORDERED: Percocet 5-3251 EACH PO (21:19)
[2022-08-27] MEDS ORDERED: CEFD300 PO (21:19)
== END 2022-08-27 22:15 | disposition home or self-care (01) ==
LOC: ER 16:51
PROVIDERS: Physician Assistant
DX: R10.30 Lower abdominal pain, unspecified (principal); B02.9 Zoster without complications; I11.0 Hypertensive heart disease with heart failure; I50.9 Heart failure, unspecified; E03.9 Hypothyroidism, unspecified; J43.9 Emphysema, unspecified; I25.2 Old myocardial infarction; Z79.890 Hormone replacement therapy; Z79.82 Long term (current) use of aspirin; Z79.899 Other long term (current) drug therapy; Z88.0 Allergy status to penicillin; Z88.6 Allergy status to analgesic agent
CPT/HCPCS: 36415; 80053; 81001; 83690; 85025; 87077; 87086; 87186; 96365; 96375; 99284-25; A9270; J0696; J1170; J2405

== ENCOUNTER → 2022-09-02 | Outpatient (CLI) | payer MEDICARE ==
[~2022-09-02] MED LIST changes: +BREZTRI AEROS10.7 GM INH; +FINA5 PO; +JARDIANCE10 MG PO; +LEVO750 PO; +LEVSOD100 PO; -LEVSOD75 PO; -METF500 PO; +Percocet 5-3251 EACH PO
[2022-09-02 12:28] LABS: Albumin, Blood 3.2 g/dL (3.4-5.0); Albumin/Globulin Ratio 0.9 (0.8-1.8); Bilirubin, Total 0.2 mg/dL (0.1-1.0); Bun/Creatinine Ratio 15.9 (12.0-20.0); Calcium, Blood 8.8 mg/dL (8.5-10.1); Creatinine, Blood 1.45 mg/dL (0.60-1.20); Globulin, Blood 3.4 g/dL (2.2-4.0); Potassium, Blood 4.1 mmol/L (3.5-5.5); Total Protein, Blood 6.6 g/dL (6.4-8.2)
== END | disposition home or self-care (01) ==
LOC: LAB SHORT 12:15
PROVIDERS: Family Medicine
DX: E86.0 Dehydration (principal)
CPT/HCPCS: 80053

== ENCOUNTER 2022-09-03 06:35 | Inpatient (IN) | payer MEDICARE ==
[~2022-09-03] VITALS: Ht 172.7 cm; Wt 89.7 kg
[~2022-09-03 06:35] MED LIST changes: -BREZTRI AEROS10.7 GM INH; -FINA5 PO; -JARDIANCE10 MG PO; -LANS30EC PO; -LEVO750 PO; -LEVSOD100 PO; -OLME20 PO; -SPIR25 PO
[2022-09-03 07:03] LABS: BASOPHILS ABSOLUTE AUTO 0.04 K/mm3 (0.00-0.23); BASOPHILS PERCENT AUTO 0 % (0-2); EOSINOPHILS PERCENT AUTO 0 % (0-6); Hematocrit 36.5 % (37.0-53.0); Hemoglobin 11.9 g/dL (13.5-17.5); IMMATURE GRAN ABSOLUTE AUTO 0.05 K/mm3 (0.00-0.10); IMMATURE GRAN PERCENT AUTO 1 % (0-1); LYMPHOCYTES ABSOLUTE AUTO 0.36 K/mm3 (0.84-5.20); LYMPHOCYTES PERCENT AUTO 3 % (21-46); MONOCYTES ABSOLUTE AUTO 0.34 K/mm3 (0.16-1.47); MONOCYTES PERCENT AUTO 3 % (4-13); Mean Corpuscular HGB Conc 32.6 g/dL (31.5-36.5); Mean Corpuscular Volume 92 fL (80-100); Mean Platelet Volume 10.4 fL (9.1-12.4); NEUTROPHILS ABSOLUTE AUTO 10.02 K/mm3 (1.96-9.15); NEUTROPHILS PERCENT AUTO 93 % (41-73); Platelet Count 103 K/mm3 (150-400); RDW Coefficient Variation 13.1 % (11.7-14.2); RDW Standard Deviation 43.7 fL (35.1-46.3); Red Blood Cell Count 3.97 M/mm3 (4.30-5.90); White Blood Cell Count 10.81 K/mm3 (4.00-11.30)
[2022-09-03 07:19] LABS: Alanine Aminotransfer (ALT/SGP 106 U/L (12-78); Albumin, Blood 3.1 g/dL (3.4-5.0); Albumin/Globulin Ratio 0.9 (0.8-1.8); Alk Phos 116 U/L (50-136); Anion Gap 1 mmol/L (6-16); Aspartate Aminotrans (AST/SGOT 33 U/L (12-37); Bilirubin, Total 0.3 mg/dL (0.1-1.0); Blood Urea Nitrogen 24 mg/dL (8-24); Bun/Creatinine Ratio 24.7 (12.0-20.0); CO2, Blood 31 mmol/L (21-32); Calcium, Blood 8.7 mg/dL (8.5-10.1); Chloride, Blood 105 mmol/L (98-108); Creatinine, Blood 0.97 mg/dL (0.60-1.20); Ethanol (Alcohol), Blood, Med <3 mg/dL; Globulin, Blood 3.6 g/dL (2.2-4.0); Glomerular Filtration Rate 80 (60-); Glucose, Blood 228 mg/dL (70-99); Magnesium, Blood 1.5 mg/dL (1.6-2.4); Potassium, Blood 4.7 mmol/L (3.5-5.5); Sodium, Blood 137 mmol/L (136-145); Total Protein, Blood 6.7 g/dL (6.4-8.2)
[2022-09-03 07:44] LABS: Source, Urine Clean Catch
[2022-09-03 07:57] LABS: Appearance, Urine Clear (Clear); Bilirubin, Urine Neg (Neg); Blood, Urine 2+ (Neg); Color, Urine Yellow (P-Yellow); Glucose Qualitative, Urine 2+ (Neg); Ketones, Urine 1+ (Neg); Leukocyte Esterase, Urine Neg (Neg); Nitrite, Urine Neg (Neg); Protein, Urine 3+ (Neg); Urobilinogen, Urine NORM (Normal)
[2022-09-03 08:05] LABS: Bacteria Not Seen /hpf; Squamous Epithelial Cells Few /hpf (Few); White Blood Cells, Urine 0-2 /hpf (0-5)
[2022-09-03 08:06] LABS: Mucus Mod (0-Heavy)
[2022-09-03] MEDS ORDERED: ESBRIET801 MG PO (16:01)
[2022-09-03] MEDS ORDERED: FINA5 PO (16:02)
[2022-09-03] MEDS ORDERED: METF500C PO (16:03)
[2022-09-03] MEDS ORDERED: ATOR20 PO (16:04)
[2022-09-03] MEDS ORDERED: OLME20 PO (16:04)
[2022-09-03] MEDS ORDERED: VENL150ER PO (16:04)
[2022-09-03] MEDS ORDERED: HYDCOR10 PO (16:05)
[2022-09-03] MEDS ORDERED: LEVSOD100 PO (16:05)
[2022-09-03] MEDS ORDERED: CLOP75 PO (16:06)
[2022-09-03] MEDS ORDERED: LANS30EC PO (16:06)
[2022-09-03] MEDS ORDERED: SPIR25 PO (16:06)
[2022-09-03] MEDS ORDERED: JARDIANCE10 MG PO (16:07)
[2022-09-03] MEDS ORDERED: TRAZ50 PO (16:08)
[2022-09-03] MEDS ORDERED: Ventolin/Prove6.7 GM INH (16:12)
[2022-09-03] MEDS ORDERED: BREZTRI AEROS10.7 GM INH (16:13)
[2022-09-03 16:36] LABS: Influenza A, PCR NEGATIVE (NEGATIVE); Influenza B, PCR NEGATIVE (NEGATIVE); Resp Syncytial Virus, PCR NEGATIVE (NEGATIVE); SARS-Cov-2 (COVID-19) PCR, MMC NEGATIVE (NEGATIVE)
--- NOTE | 2022-09-03 19:04 | NUR ---
SHIFT SUMMARY: ASSSUMED CARE OF PATIENT UPON HIS ARRIVAL FROM ER AT 1600. AROUSES TO SPEECH, ORIENTED TO SELF AND , BUT IS CONFUSED. TELEMETRY SHOWS SINUS TACH IN LOW 100'S (105-111). ON O2 @ 3 L/MIN NC WHICH IS HIS BASELINE. USING URINAL WITH ASSISTANCE, URINE IS ORANGE. TOO SLEEPY TO EAT DINNER OR TAKE PM CARVEDILOL. STATED THAT HE HAS TROUBLE SWALLOWING AT HOME. ON AIRBORNE PRECAUTIONS FOR RECENT SHINGLES, BUT ALL LESIONS (ON L LOWER BACK/BUTTOCKS AND LLE) ARE SCABBED OVER AND HE HAS COMPLETED ACYCLOVIR COURSE.
--- NOTE | 2022-09-04 05:23 | NUR ---
[facility] SUMMARY NO ACUTE EVENTS. PT LETHARGIC/DROWSY AT BEGINNING OF SHIFT. PT BECOMING MORE ALERT/ORIENTED T/O THE SHIFT. WAKEFULL/RESTLESS T/O THE NIGHT. PT BRIEF EPISODES OF CONFUSION/FOREGETFULLNESS BUT EASILY REORIENTED. NEW IV PLACED IN LEFT FOREARM--NS 75MLS/HR INFUSING. PT ON O2 3L NC T/O THE NIGHT. CALL TO PT TO REQUEST SHE BRING PT CPAP MACHING FROM HOME (PER RT REQUEST). PT ABLE TO TAKE 2100 MEDS WHOLE. PT CONT TO HAVE BRIGHT ORANGE URINE; EDUCATION ON PYRIDIUM MEDS GIVEN IN ED. NO EVENTS ON TELE; NORMAL SINUS-SINUS TACH. PT ABLE TO MAKE NEEDS KNOWN. CALL LIGHT ACCESSIBLE.
[2022-09-04 05:37] LABS: BASOPHILS ABSOLUTE AUTO 0.01 K/mm3 (0.00-0.23); BASOPHILS PERCENT AUTO 0 % (0-2); EOSINOPHILS PERCENT AUTO 0 % (0-6); Hematocrit 30.8 % (37.0-53.0); Hemoglobin 10.1 g/dL (13.5-17.5); IMMATURE GRAN ABSOLUTE AUTO 0.03 K/mm3 (0.00-0.10); IMMATURE GRAN PERCENT AUTO 1 % (0-1); LYMPHOCYTES ABSOLUTE AUTO 0.31 K/mm3 (0.84-5.20); LYMPHOCYTES PERCENT AUTO 5 % (21-46); MONOCYTES ABSOLUTE AUTO 0.11 K/mm3 (0.16-1.47); MONOCYTES PERCENT AUTO 2 % (4-13); Mean Corpuscular HGB 30.2 pg (26.0-34.0); Mean Corpuscular HGB Conc 32.8 g/dL (31.5-36.5); Mean Corpuscular Volume 92 fL (80-100); Mean Platelet Volume 10.8 fL (9.1-12.4); NEUTROPHILS ABSOLUTE AUTO 5.89 K/mm3 (1.96-9.15); NEUTROPHILS PERCENT AUTO 93 % (41-73); Platelet Count 91 K/mm3 (150-400); RDW Coefficient Variation 13.2 % (11.7-14.2); RDW Standard Deviation 44.5 fL (35.1-46.3); Red Blood Cell Count 3.34 M/mm3 (4.30-5.90); White Blood Cell Count 6.35 K/mm3 (4.00-11.30)
[2022-09-04 06:00] LABS: Albumin, Blood 2.7 g/dL (3.4-5.0); Albumin/Globulin Ratio 0.9 (0.8-1.8); Bilirubin, Total 0.5 mg/dL (0.1-1.0); Bun/Creatinine Ratio 21.9 (12.0-20.0); Calcium, Blood 7.6 mg/dL (8.5-10.1); Creatinine, Blood 0.82 mg/dL (0.60-1.20); Potassium, Blood 3.7 mmol/L (3.5-5.5); Total Protein, Blood 5.7 g/dL (6.4-8.2)
--- NOTE | 2022-09-04 19:29 | NUR ---
ALERT TO SELF AND , ANSWERS ORIENTEATION QUESTIONS APPRIATELY, UNABLE TO FOLLOW A SUBJECT, EASILY CONFUSED AND FOCUSES ON INDIVIDUAL THINGS ONLY, BED ALARM ON. CALL LIGHT WITH IN REACH
--- NOTE | 2022-09-05 05:13 | NUR ---
ELECTRONIC TECH SUMMARY PT A/OX3-4; CAN ANSWER ORIENTATION QUESTIONS BUT HAS FEQUENT EPISODES OF CONFUSION AND DISORIENTATION. PT CAN BECOME AGITATED AND FRUSTRATED EASILY. MULTIPLE EPISODES OF PT CALLING OUT LOUDLY AND OFTEN CALLING FOR HIS . WHEN ASKED PT IF HE KNEW WHERE HE WAS, HE WOULD SAY "YES"; WHEN ASKING PT WHERE HE WAS, HE MIGHT NOT BE ABLE TO SAY. PT WOULD BECOME AGITATED WHEN REORIENTING TO BEING IN THE HOSPITAL AND TELLING HIM HIS IS NOT HERE. ASSISTED PT IN CALLING APROX 0. THIS NURSE SPOKE WITH PT ON PHONE; CONFIRMS EPISODES OF CONFUSION HAVE BEEN HAPPENING FOR A WHILE AND WOULD SAY THIS HAS BECOME "NORMAL" FOR THIS PT. FOUND PT MULTIPLE TIMES REACHING FOR AND HOLDING HIS PHONE; PT WOULD SAY HE WAS GOING TO CALL HOSPITAL STAFF WITH THE PHONE. REORIENTED PT TO CALL LIGHT; PT WOULD SOMETIMES LAUGH AND SAY "I KNEW THAT" AND OTHER TIMES BECOME AGITATED. RT AT BEDSIDE TO SET UP HOME CPAP; PT WORE T/O THE NIGHT BUT WAS RESTLESS T/O THE NIGHT. FIGETY AND MAKING MULTPLE ATTEMPTS OOB. WHEN ASSESSING PT NEEDS; SOMETIMES HE WOULD NEED TO VOID AND OTHER TIMES HE WAS NOT SURE WHERE HE WAS AT. BED ALARM SET. CALL LIGHT ACCESSIBLE. THIS NURSE STATION IN CLOSE PROXIMITY TO PT ROOM. ON TELE; SINUS ARRHYTHMIA C BBB; 68 BPM. PT ON 3L O2 NC AND CONT PULSE OX. SATURATIONS MAINTAINING >90% T/O THE NIGHT. PT NOT ABLE TO USE CALL LIGHT APPROPRIATELY AND DIFFICULTY MAKING NEEDS KNOWN DUE TO CONFUSION AND AGITATION.
[2022-09-05 06:32] LABS: BASOPHILS ABSOLUTE AUTO 0.01 K/mm3 (0.00-0.23); BASOPHILS PERCENT AUTO 0 % (0-2); EOSINOPHILS PERCENT AUTO 0 % (0-6); Hematocrit 29.2 % (37.0-53.0); Hemoglobin 9.7 g/dL (13.5-17.5); IMMATURE GRAN ABSOLUTE AUTO 0.04 K/mm3 (0.00-0.10); IMMATURE GRAN PERCENT AUTO 1 % (0-1); LYMPHOCYTES ABSOLUTE AUTO 0.61 K/mm3 (0.84-5.20); LYMPHOCYTES PERCENT AUTO 9 % (21-46); MONOCYTES ABSOLUTE AUTO 0.27 K/mm3 (0.16-1.47); MONOCYTES PERCENT AUTO 4 % (4-13); Mean Corpuscular HGB 30.2 pg (26.0-34.0); Mean Corpuscular HGB Conc 33.2 g/dL (31.5-36.5); Mean Corpuscular Volume 91 fL (80-100); Mean Platelet Volume 10.8 fL (9.1-12.4); NEUTROPHILS ABSOLUTE AUTO 5.97 K/mm3 (1.96-9.15); NEUTROPHILS PERCENT AUTO 87 % (41-73); Platelet Count 92 K/mm3 (150-400); RDW Coefficient Variation 13.1 % (11.7-14.2); RDW Standard Deviation 43.2 fL (35.1-46.3); Red Blood Cell Count 3.21 M/mm3 (4.30-5.90)
[2022-09-05 07:03] LABS: Bun/Creatinine Ratio 25.3 (12.0-20.0); Creatinine, Blood 0.91 mg/dL (0.60-1.20); Potassium, Blood 3.7 mmol/L (3.5-5.5)
--- NOTE | 2022-09-05 17:40 | NUR ---
PATIENT HAS CONTINUED TO NOT SLEEP, VERY IMPULSIVE AND AGRUMENTATIVE, BED AND CHAIR ALARMS ON, PATIENT REGULARLY REORIENTED, CONFUSED AND FORGETFUL. MAKES NEEDS KNOWN, SEROQUEL AVAILABLE TONIGHT FOR INSOMNIA, SHINGLES SCABED OVER, JULIA STAYED HOME TODAY, WILL RELAY TO PM RN
--- NOTE | 2022-09-05 19:15 | NUR ---
RECEIVED REPORT FROM CHERYL RN. PT IN BED WATCHING TV. RESP EVEN ON 3L BASELINE FOR PT. TELE IN PLACE. WILL CONTINUE TO PROVIDE CARE T/O SHIFT. CALL LT IN REACH.
--- NOTE | 2022-09-05 20:00 | NUR ---
PT PLEASANTLY CONFUSED. BEEN IN PT'S ROOM MULTIPLE TIMES. BED ALARM IS ON. CURRENTLY ON 3L VIA PR. CALL LT IN HAND.
--- NOTE | 2022-09-05 22:16 | NUR ---
PT RESTING QUIETLY AT THIS TIME IN BED. RESP E/U ON 3L. EYES ARE CLOSED. CALL LT IN REACH. BED ALARM ON.
--- NOTE | 2022-09-06 00:10 | NUR ---
REATTACHED FINGER PROBE ADAPTOR TO OXIMETER. NO OTHER NEEDS. PT RESTING QUIETLY. CALL LT IN REACH. BED ALARM ON.
--- NOTE | 2022-09-06 02:11 | NUR ---
PT RESTING QUIETLY. CALL LT IN REACH.
--- NOTE | 2022-09-06 04:23 | NUR ---
ASSISTED PT TO MAKE A PHONE CALL TO HIS . HE WAS WANTING TO SEE HOW SHE WAS FEELING. NO OTHER NEEDS. CALL LT IN REACH.
[2022-09-06 04:51] LABS: BASOPHILS ABSOLUTE AUTO 0.02 K/mm3 (0.00-0.23); BASOPHILS PERCENT AUTO 0 % (0-2); EOSINOPHILS PERCENT AUTO 0 % (0-6); Hematocrit 29.1 % (37.0-53.0); Hemoglobin 9.7 g/dL (13.5-17.5); IMMATURE GRAN ABSOLUTE AUTO 0.02 K/mm3 (0.00-0.10); IMMATURE GRAN PERCENT AUTO 0 % (0-1); LYMPHOCYTES PERCENT AUTO 22 % (21-46); MONOCYTES ABSOLUTE AUTO 0.47 K/mm3 (0.16-1.47); MONOCYTES PERCENT AUTO 10 % (4-13); Mean Corpuscular HGB 29.8 pg (26.0-34.0); Mean Corpuscular HGB Conc 33.3 g/dL (31.5-36.5); Mean Corpuscular Volume 89 fL (80-100); Mean Platelet Volume 10.6 fL (9.1-12.4); NEUTROPHILS ABSOLUTE AUTO 3.33 K/mm3 (1.96-9.15); NEUTROPHILS PERCENT AUTO 67 % (41-73); Platelet Count 103 K/mm3 (150-400); RDW Coefficient Variation 13.1 % (11.7-14.2); RDW Standard Deviation 42.5 fL (35.1-46.3); Red Blood Cell Count 3.26 M/mm3 (4.30-5.90); White Blood Cell Count 4.94 K/mm3 (4.00-11.30)
--- NOTE | 2022-09-06 04:51 | NUR ---
SHIFT SUMMARY: PT PLEASANTLY CONFUSED AT TIMES DURING SHIFT. ON 3L OXYGEN, PT'S BASELINE. SINUS RHYTHM AT 75 ON TELE. TOOK MEDS WHOLE WITH WATER WITHOUT DIFFICULTY. SHINGLE LESIONS SCABBED OVER. SAT IN CHAIR FOR A WHILE. USES CALL LT FOR NEEDS. NO ACUTE CHANGES. WILL CONTINUE TO PROVIDE CARE UNTIL SHIFT REPORT. CALL LT IN REACH. BED ALARM ON.
[2022-09-06 05:12] LABS: Bun/Creatinine Ratio 27.2 (12.0-20.0); Calcium, Blood 8.4 mg/dL (8.5-10.1); Creatinine, Blood 0.99 mg/dL (0.60-1.20); Potassium, Blood 2.7 mmol/L (3.5-5.5)
--- NOTE | 2022-09-06 06:20 | NUR ---
PT SITTING ON BED TALKING TO ON THE PHONE. CALL LT IN REACH.
--- NOTE | 2022-09-06 18:52 | NUR ---
LESS CONFUSION TODAY, IMPULSIVE IN ROOM, BSU, BED AND CHAIR ALARM ON, SBA, FALL RISK DUE TO LINES AND CORDS, POTASSIUM SUPPLIMENTS GIVEN TODAY. WILL RELAY TO PM RN
--- NOTE | 2022-09-07 06:35 | NUR ---
PT IS A&O2-3 MILD CONFUSION OVERNIGHT, 3L NC AT BASELINE, VSS, NO COMPLAINTS OF PAIN OR DISCOMFORT OVERNIGHT, CONTINUE POC
[2022-09-07] MEDS ORDERED: LEVO750 PO (11:17)
--- NOTE | 2022-09-07 12:30 | NUR ---
PT LEFT THE HOSPITAL IN ON 3 L OF O2 WITH AND ALL BELONGINGS IN STABLE CONDITION AT 1145.
== END 2022-09-07 12:01 | disposition home or self-care (01) | DRG 871 ==
LOC: ER 06:35 → MEDS 06:36
PROVIDERS: Emergency Medicine; ADMIT Internal Medicine
DX: A41.9 Sepsis, unspecified organism (principal); G93.41 Metabolic encephalopathy; J18.9 Pneumonia, unspecified organism; N17.9 Acute kidney failure, unspecified; J96.11 Chronic respiratory failure with hypoxia; I13.0 Hypertensive heart and chronic kidney disease with heart failure and stage 1 through stage 4 chronic kidney disease, or unspecified chronic kidney disease; I50.22 Chronic systolic (congestive) heart failure; E27.2 Addisonian crisis; Z20.822 Contact with and (suspected) exposure to COVID-19; R65.20 Severe sepsis without septic shock; J43.9 Emphysema, unspecified; I25.10 Atherosclerotic heart disease of native coronary artery without angina pectoris; J84.112 Idiopathic pulmonary fibrosis; J61 Pneumoconiosis due to asbestos and other mineral fibers; E03.9 Hypothyroidism, unspecified; G47.33 Obstructive sleep apnea (adult) (pediatric); E66.9 Obesity, unspecified; N18.9 Chronic kidney disease, unspecified; E78.5 Hyperlipidemia, unspecified; F41.3 Other mixed anxiety disorders; N40.0 Benign prostatic hyperplasia without lower urinary tract symptoms; E87.6 Hypokalemia; G31.84 Mild cognitive impairment of uncertain or unknown etiology; D63.1 Anemia in chronic kidney disease; F32.A Depression, unspecified; Z96.642 Presence of left artificial hip joint; Z91.14 Patient's other noncompliance with medication regimen; Z68.33 Body mass index [BMI] 33.0-33.9, adult; Z86.718 Personal history of other venous thrombosis and embolism; I25.2 Old myocardial infarction; Z90.49 Acquired absence of other specified parts of digestive tract; Z90.89 Acquired absence of other organs; Z98.890 Other specified postprocedural states; Z86.73 Personal history of transient ischemic attack (TIA), and cerebral infarction without residual deficits; Z88.0 Allergy status to penicillin; Z88.8 Allergy status to other drugs, medicaments and biological substances; Z79.82 Long term (current) use of aspirin; Z79.890 Hormone replacement therapy; Z79.84 Long term (current) use of oral hypoglycemic drugs; Z79.899 Other long term (current) drug therapy
CPT/HCPCS: 0241U; 36415; 70450; 71045; 80048; 80053; 81001; 82947; 83605; 83735; 83880; 84132; 84145; 85025; 87040; 93005; 93010; 94640; 94660; 94664; 94760; 94762; 96361; 96365; 96366; 96367; 96372; 96375; 96376; 97116; 97161; 97166; 97530; 97535; 99285-25; A9270; G0378; G0480; J0456; J0696; J0780; J1644; J1720; J3475; J3480; J7030; J7050

== ENCOUNTER 2023-03-05 15:37 | Emergency (ER) | payer MEDICARE ==
[~2023-03-05] VITALS: Ht 172.7 cm; Wt 81.7 kg
[~2023-03-05 15:37] MED LIST changes: +BREZTRI AEROS10.7 GM INH; +FINA5 PO; +JARDIANCE10 MG PO; +LANS30EC PO; +LEVO750 PO; +LEVSOD100 PO; +OLME20 PO; +SPIR25 PO
[2023-03-05 17:41] LABS: Source, Urine Clean Catch
[2023-03-05 17:44] LABS: Appearance, Urine Cloudy (Clear); Bilirubin, Urine Neg (Neg); Blood, Urine 5+ (Neg); Color, Urine Yellow (P-Yellow); Glucose Qualitative, Urine 4+ (Neg); Ketones, Urine Neg (Neg); Leukocyte Esterase, Urine 3+ (Neg); Nitrite, Urine Neg (Neg); Protein, Urine 2+ (Neg); Urobilinogen, Urine NORM (Normal)
[2023-03-05 17:59] LABS: White Blood Cells, Urine TNTC /hpf (0-5); Yeast/Fungi Urine Mod /hpf
[2023-03-05 18:00] LABS: Bacteria Mod /hpf; Red Blood Cells, Urine 50-100 /hpf (0-2); Squamous Epithelial Cells Rare /hpf (Few)
[2023-03-05] MEDS ORDERED: TAMS.4ER PO (19:11)
[2023-03-05] MEDS ORDERED: CEFD300 PO (19:11)
[2023-03-05 19:18] VITALS: BP 99/70
== END 2023-03-05 19:53 | disposition home or self-care (01) ==
LOC: ER 15:37
PROVIDERS: Physician Assistant
DX: N40.1 Benign prostatic hyperplasia with lower urinary tract symptoms (principal); R35.0 Frequency of micturition; Z88.0 Allergy status to penicillin; Z88.8 Allergy status to other drugs, medicaments and biological substances; Z79.899 Other long term (current) drug therapy; Z79.84 Long term (current) use of oral hypoglycemic drugs; I11.0 Hypertensive heart disease with heart failure; I25.10 Atherosclerotic heart disease of native coronary artery without angina pectoris; G47.33 Obstructive sleep apnea (adult) (pediatric); I50.9 Heart failure, unspecified; E03.9 Hypothyroidism, unspecified; I25.2 Old myocardial infarction
CPT/HCPCS: 81001; 87086; 99283; A9270

== ENCOUNTER 2023-03-07 11:57 | Observation (INO) | payer MEDICARE ==
[~2023-03-07] VITALS: Ht 172.7 cm; Wt 84.8 kg
[2023-03-07 12:36] LABS: Source, Urine Clean Catch
[2023-03-07 12:43] LABS: Appearance, Urine Cloudy (Clear); Bilirubin, Urine Neg (Neg); Blood, Urine 3+ (Neg); Color, Urine Yellow (P-Yellow); Glucose Qualitative, Urine 2+ (Neg); Ketones, Urine Neg (Neg); Leukocyte Esterase, Urine 3+ (Neg); Nitrite, Urine Neg (Neg); Protein, Urine 3+ (Neg); Specific Gravity, Urine 1.015 (1.003-1.022); Urobilinogen, Urine NORM (Normal)
[2023-03-07 12:45] LABS: BASOPHILS ABSOLUTE AUTO 0.04 K/mm3 (0.00-0.23); BASOPHILS PERCENT AUTO 1 % (0-2); EOSINOPHILS PERCENT AUTO 0 % (0-6); Hematocrit 30.5 % (37.0-53.0); Hemoglobin 9.1 g/dL (13.5-17.5); IMMATURE GRAN ABSOLUTE AUTO 0.04 K/mm3 (0.00-0.10); IMMATURE GRAN PERCENT AUTO 1 % (0-1); LYMPHOCYTES ABSOLUTE AUTO 1.26 K/mm3 (0.84-5.20); LYMPHOCYTES PERCENT AUTO 14 % (21-46); MONOCYTES ABSOLUTE AUTO 0.89 K/mm3 (0.16-1.47); MONOCYTES PERCENT AUTO 10 % (4-13); Mean Corpuscular HGB 25.4 pg (26.0-34.0); Mean Corpuscular HGB Conc 29.8 g/dL (31.5-36.5); Mean Corpuscular Volume 85 fL (80-100); Mean Platelet Volume 9.6 fL (9.1-12.4); NEUTROPHILS ABSOLUTE AUTO 6.65 K/mm3 (1.96-9.15); NEUTROPHILS PERCENT AUTO 75 % (41-73); Platelet Count 165 K/mm3 (150-400); RDW Coefficient Variation 15.9 % (11.7-14.2); RDW Standard Deviation 49.8 fL (35.1-46.3); Red Blood Cell Count 3.58 M/mm3 (4.30-5.90); White Blood Cell Count 8.88 K/mm3 (4.00-11.30)
[2023-03-07 12:55] LABS: White Blood Cells, Urine TNTC /hpf (0-5); Yeast/Fungi Urine Many /hpf
[2023-03-07 12:57] LABS: International Normalized Ratio 0.99; Prothrombin Time Results 10.4 Sec (9.7-11.5)
[2023-03-07 12:59] LABS: Bacteria Many /hpf
[2023-03-07 13:00] LABS: Squamous Epithelial Cells Rare /hpf (Few)
[2023-03-07 13:02] LABS: Red Blood Cells, Urine 0-2 /hpf (0-2)
[2023-03-07 13:10] LABS: Albumin/Globulin Ratio 0.8 (0.8-1.8); Bilirubin, Total 0.2 mg/dL (0.1-1.0); Bun/Creatinine Ratio 30.7 (12.0-20.0); Calcium, Blood 8.9 mg/dL (8.5-10.1); Creatinine, Blood 1.76 mg/dL (0.60-1.20); Globulin, Blood 3.6 g/dL (2.2-4.0); Magnesium, Blood 2.4 mg/dL (1.6-2.4); Phosphorus, Blood 4.4 mg/dL (2.5-4.9); Potassium, Blood 4.6 mmol/L (3.5-5.5); Thyroid Stimulating Hormone 1.32 uIU/mL (0.360-4.800); Total Protein, Blood 6.6 g/dL (6.4-8.2)
[2023-03-07 18:37] VITALS: BP 126/83
--- NOTE | 2023-03-07 19:07 | NUR ---
ARRIVAL TO [facility] FLOOR FOR ADMISSION NOTE PT ARRIVED TO MED FLOOR FROM ED AT APPROX 1830. PT ARRIVED WITH , JULIA, AT BEDSIDE. PT IS AxOx4. PLEASANT AND COOPERATIVE WITH CARE. ADMISSION ASSESSMENT COMPLETE. OTHER ADMISSION CHARTING NOT COMPLETED. ONCOMING NIGHT RN'S MADE AWARE. PT IS CURRENTLY RESTING IN BED. VITALS REVIEWED. PT DENIES ANY NEEDS AT THIS TIME. CALL LIGHT IN REACH.
[2023-03-08 02:36] VITALS: BP 131/85
--- NOTE | 2023-03-08 04:07 | NUR ---
SHIFT SUMMARY PATIENT HAD NO ACUTE CHANGES. AXOX 4 AND ONE ASSIST FWW TO BSC. USES URINAL AT BEDSIDE. PIV REMAINS INTACT. NS INFUSING AT 100 mL/HR. TELE MONITOR NSR 79. CBG 117. ON 3L O2 NC BASELINE. VSS/AFEBRILE. DENIES CHEST PAIN. SOB, AND N/V. NO SYNCOPAL EVENTS. CALL LIGHT IN REACH. BED IN LOWEST POSITION. WILL CONTINUE TO MONITOR UNTIL DAY SHIFT NURSE ASSUMES CARE.
[2023-03-08 04:53] LABS: BASOPHILS ABSOLUTE AUTO 0.04 K/mm3 (0.00-0.23); BASOPHILS PERCENT AUTO 1 % (0-2); EOSINOPHILS ABSOLUTE AUTO 0.18 K/mm3 (0.00-0.68); EOSINOPHILS PERCENT AUTO 3 % (0-6); Hematocrit 27.6 % (37.0-53.0); Hemoglobin 8.4 g/dL (13.5-17.5); IMMATURE GRAN ABSOLUTE AUTO 0.04 K/mm3 (0.00-0.10); IMMATURE GRAN PERCENT AUTO 1 % (0-1); LYMPHOCYTES PERCENT AUTO 17 % (21-46); MONOCYTES ABSOLUTE AUTO 0.59 K/mm3 (0.16-1.47); MONOCYTES PERCENT AUTO 9 % (4-13); Mean Corpuscular HGB 25.6 pg (26.0-34.0); Mean Corpuscular HGB Conc 30.4 g/dL (31.5-36.5); Mean Corpuscular Volume 84 fL (80-100); Mean Platelet Volume 9.7 fL (9.1-12.4); NEUTROPHILS ABSOLUTE AUTO 4.69 K/mm3 (1.96-9.15); NEUTROPHILS PERCENT AUTO 71 % (41-73); Platelet Count 155 K/mm3 (150-400); RDW Coefficient Variation 15.7 % (11.7-14.2); RDW Standard Deviation 48.4 fL (35.1-46.3); Red Blood Cell Count 3.28 M/mm3 (4.30-5.90); White Blood Cell Count 6.64 K/mm3 (4.00-11.30)
[2023-03-08 05:12] LABS: Albumin, Blood 2.5 g/dL (3.4-5.0); Albumin/Globulin Ratio 0.8 (0.8-1.8); Bilirubin, Total 0.2 mg/dL (0.1-1.0); Bun/Creatinine Ratio 34.1 (12.0-20.0); Calcium, Blood 8.4 mg/dL (8.5-10.1); Creatinine, Blood 1.32 mg/dL (0.60-1.20); Globulin, Blood 3.3 g/dL (2.2-4.0); Potassium, Blood 5.2 mmol/L (3.5-5.5); Total Protein, Blood 5.8 g/dL (6.4-8.2)
[2023-03-08 07:50] VITALS: BP 116/71
[2023-03-08 16:03] VITALS: BP 108/72
--- NOTE | 2023-03-08 17:09 | NUR ---
SHIFT SUMMARY PT AxOx4, PLEASANT AND COOPERATIVE WITH CARE. PT RECEIVED IV FLUIDS AND IV ABX TODAY. PER CUSTOMER ACCOUNT SPECIALIST, TELE WAS RUNNING NORMAL SINUS RHYTHM. BREATHING WITHOUT DIFFICULTY ON BASELINE OF 3L O2 VIA NC. PT DENIED ANY PAIN THIS SHIFT. PT TOLERATING DIET AND ENCOURAGED TO PUSH FLUID INTAKE. , JULIA, IN ROOM FOR VISIT, AND WAS UPDATED ON PLAN OF CARE BY PROVIDER. CURRENT PLAN IS AN EXPECTED DC TO HOME TOMORROW. PT IS CURRENTLY RESTING IN BED WATCHING TV. CALL LIGHT IN REACH. DENIES ANY NEEDS AT THIS TIME.
[2023-03-08 19:38] VITALS: BP 124/87
[2023-03-09 03:18] VITALS: BP 128/74
--- NOTE | 2023-03-09 04:17 | NUR ---
SHIFT SUMMARY PATIENT IS ALERT AND ORIENTED. PATIENT HAS HAD NO ACUTE EVENTS THIS SHIFT. VITAL SIGNS REVIEWED. PATIENT HAS BEEN PLEASENT AND COOPERATIVE THIS SHIFT. PATIENT HAS BEEN ON HIS BASELINE 3L ALL SHIFT 02 GREATER THAN 92 ALL SHIFT. IV FLUIDS INFUSING ALL SHIFT. PATIENT HAS NOT COMPLAINED OF SOB, NAUSEA, VOMITTING OR PAIN THIS SHIFT. BED IN LOCKED AND LOWEST POSITION. CALL LIGHT IN PLACE. WILL MONITOR UNTIL SHIFT CHANGE.
[2023-03-09 04:58] LABS: BASOPHILS ABSOLUTE AUTO 0.03 K/mm3 (0.00-0.23); BASOPHILS PERCENT AUTO 1 % (0-2); EOSINOPHILS PERCENT AUTO 0 % (0-6); Hematocrit 26.3 % (37.0-53.0); Hemoglobin 8.2 g/dL (13.5-17.5); IMMATURE GRAN ABSOLUTE AUTO 0.04 K/mm3 (0.00-0.10); IMMATURE GRAN PERCENT AUTO 1 % (0-1); LYMPHOCYTES ABSOLUTE AUTO 1.07 K/mm3 (0.84-5.20); LYMPHOCYTES PERCENT AUTO 21 % (21-46); MONOCYTES ABSOLUTE AUTO 0.55 K/mm3 (0.16-1.47); MONOCYTES PERCENT AUTO 11 % (4-13); Mean Corpuscular HGB 26.2 pg (26.0-34.0); Mean Corpuscular HGB Conc 31.2 g/dL (31.5-36.5); Mean Corpuscular Volume 84 fL (80-100); Mean Platelet Volume 9.4 fL (9.1-12.4); NEUTROPHILS ABSOLUTE AUTO 3.51 K/mm3 (1.96-9.15); NEUTROPHILS PERCENT AUTO 67 % (41-73); Platelet Count 157 K/mm3 (150-400); RDW Coefficient Variation 15.8 % (11.7-14.2); RDW Standard Deviation 48.4 fL (35.1-46.3); Red Blood Cell Count 3.13 M/mm3 (4.30-5.90)
[2023-03-09 05:19] LABS: Magnesium, Blood 1.9 mg/dL (1.6-2.4)
[2023-03-09 05:20] LABS: Albumin, Blood 2.7 g/dL (3.4-5.0); Anion Gap 2 mmol/L (6-16); Blood Urea Nitrogen 30 mg/dL (8-24); Bun/Creatinine Ratio 28.6 (12.0-20.0); CO2, Blood 27 mmol/L (21-32); Calcium, Blood 8.4 mg/dL (8.5-10.1); Chloride, Blood 110 mmol/L (98-108); Creatinine, Blood 1.05 mg/dL (0.60-1.20); Glomerular Filtration Rate 73 (60-); Glucose, Blood 91 mg/dL (70-99); Phosphorus, Blood 3.1 mg/dL (2.5-4.9); Potassium, Blood 4.8 mmol/L (3.5-5.5); Sodium, Blood 139 mmol/L (136-145)
[2023-03-09 07:53] VITALS: BP 127/74
[2023-03-09] MEDS ORDERED: DONE5 PO (12:21)
[2023-03-09] MEDS ORDERED: CARV3.125 PO (12:21)
[2023-03-09] MEDS ORDERED: ASPI81CH PO (12:21)
[2023-03-09] MEDS ORDERED: GABA300 PO (12:22)
[2023-03-09] MEDS ORDERED: PRAM.5 PO (12:24)
--- NOTE | 2023-03-09 14:05 | NUR ---
DISCHARGE SUMMARY PT DISCHARGED TO HOME. PT LEFT ROOM VIA WHEELCHAIR WITH [employer]IGE GOODS INSPECTOR ESCORT AT THIS TIME WITH SPOUSE PRESENT. IV DC'D AND BELONGINGS RETURNED. PT AND SPOUSE EDUCATED ON ALL DISCHAGE INSTRUCTIONS. PT AGREES TO TAKE MEDICATIONS PRESCIBED AND FOLLOW UP WITH PCP ORDERED.
== END 2023-03-09 14:09 | disposition home or self-care (01) ==
LOC: ER 11:57 → MEDS 11:58 → ENPENDDIS 03-09 11:41 → MEDS 03-09 14:09
PROVIDERS: Emergency Medicine; Family Medicine; ADMIT Internal Medicine
DX: R55 Syncope and collapse (principal); E03.9 Hypothyroidism, unspecified; I25.10 Atherosclerotic heart disease of native coronary artery without angina pectoris; E78.5 Hyperlipidemia, unspecified; K21.9 Gastro-esophageal reflux disease without esophagitis; E11.22 Type 2 diabetes mellitus with diabetic chronic kidney disease; I12.9 Hypertensive chronic kidney disease with stage 1 through stage 4 chronic kidney disease, or unspecified chronic kidney disease; N18.9 Chronic kidney disease, unspecified; N17.9 Acute kidney failure, unspecified; N39.0 Urinary tract infection, site not specified; J96.11 Chronic respiratory failure with hypoxia; E27.40 Unspecified adrenocortical insufficiency; F32.9 Major depressive disorder, single episode, unspecified; N40.0 Benign prostatic hyperplasia without lower urinary tract symptoms; Z88.0 Allergy status to penicillin
CPT/HCPCS: 36415; 70450; 71046; 73030; 80053; 80069; 81001; 82947; 83735; 84100; 84443; 84484; 85025; 85610; 85730; 93005; 93010; 94640; 94664; 94760; 96361; 96365; 96372; 96376; 99285-25; A9270; G0378; J0696; J1644; J7030

== ENCOUNTER 2023-04-23 14:30 | Emergency (ER) | payer MEDICARE ==
[~2023-04-23] VITALS: Ht 172.7 cm; Wt 82.1 kg
[~2023-04-23 14:30] MED LIST changes: +CARV3.125 PO; +DONE5 PO
[2023-04-23 14:37] VITALS: BP 115/68
[2023-04-23] MEDS ORDERED: BENZ100A PO (15:39)
== END 2023-04-23 16:35 | disposition home or self-care (01) ==
LOC: ER 14:30
DX: J43.9 Emphysema, unspecified (principal); J20.9 Acute bronchitis, unspecified; J21.9 Acute bronchiolitis, unspecified; I25.10 Atherosclerotic heart disease of native coronary artery without angina pectoris; I50.9 Heart failure, unspecified; E11.9 Type 2 diabetes mellitus without complications; E03.9 Hypothyroidism, unspecified; K21.9 Gastro-esophageal reflux disease without esophagitis; F41.8 Other specified anxiety disorders; I25.2 Old myocardial infarction; Z88.6 Allergy status to analgesic agent; Z79.899 Other long term (current) drug therapy; Z79.84 Long term (current) use of oral hypoglycemic drugs; Z79.82 Long term (current) use of aspirin; Z20.822 Contact with and (suspected) exposure to COVID-19
CPT/HCPCS: 71046; 99283-25

== ENCOUNTER 2024-03-14 05:09 | Emergency (ER) | payer BC ==
[~2024-03-14] VITALS: Ht 172.7 cm; Wt 86.6 kg
[2024-03-14 05:37] LABS: BASOPHILS ABSOLUTE AUTO 0.04 K/mm3 (0.00-0.23); BASOPHILS PERCENT AUTO 1 % (0-2); EOSINOPHILS PERCENT AUTO 0 % (0-6); Hematocrit 34.3 % (37.0-53.0); Hemoglobin 11.1 g/dL (13.5-17.5); IMMATURE GRAN ABSOLUTE AUTO 0.03 K/mm3 (0.00-0.10); IMMATURE GRAN PERCENT AUTO 0 % (0-1); LYMPHOCYTES ABSOLUTE AUTO 1.57 K/mm3 (0.84-5.20); LYMPHOCYTES PERCENT AUTO 21 % (21-46); MONOCYTES ABSOLUTE AUTO 0.66 K/mm3 (0.16-1.47); MONOCYTES PERCENT AUTO 9 % (4-13); Mean Corpuscular HGB 26.2 pg (26.0-34.0); Mean Corpuscular HGB Conc 32.4 g/dL (31.5-36.5); Mean Corpuscular Volume 81 fL (80-100); Mean Platelet Volume 9.3 fL (9.1-12.4); NEUTROPHILS ABSOLUTE AUTO 5.21 K/mm3 (1.96-9.15); NEUTROPHILS PERCENT AUTO 69 % (41-73); Platelet Count 133 K/mm3 (150-400); RDW Coefficient Variation 15.7 % (11.7-14.2); RDW Standard Deviation 45.6 fL (35.1-46.3); Red Blood Cell Count 4.24 M/mm3 (4.30-5.90); White Blood Cell Count 7.51 K/mm3 (4.00-11.30)
[2024-03-14 06:04] LABS: Albumin/Globulin Ratio 0.8 (0.8-1.8); Bilirubin, Total 0.3 mg/dL (0.1-1.0); Calcium, Blood 8.5 mg/dL (8.5-10.1); Creatinine, Blood 0.94 mg/dL (0.60-1.20); Globulin, Blood 3.6 g/dL (2.2-4.0); Potassium, Blood 3.9 mmol/L (3.5-5.5); Total Protein, Blood 6.6 g/dL (6.4-8.2)
[2024-03-14] MEDS ORDERED: Methyl Salicylate/Menth/Camph 57 GM TUBE TOP ONE (06:40)
[2024-03-14] MEDS ORDERED: Ketorolac Tromethamine 30mg Vial IV ONE (06:40)
[2024-03-14] MEDS ORDERED: Methocarbamol 500 MG Tab PO ONE (06:40)
[2024-03-14 07:37] LABS: Influenza A, PCR NEGATIVE (NEGATIVE); Influenza B, PCR NEGATIVE (NEGATIVE); Resp Syncytial Virus, PCR NEGATIVE (NEGATIVE); SARS-Cov-2 (COVID-19) PCR, MMC NEGATIVE (NEGATIVE)
[2024-03-14] MEDS ORDERED: Ipratropium/Albuterol SulF 2.5-0.5MG/3 ML Amp INH ONE (07:40)
[2024-03-14] MEDS ORDERED: PredniSONE 20 MG Tab PO ONE (09:10)
[2024-03-14] MEDS ORDERED: Azithromycin 250 MG Tab PO ONE (09:10)
[2024-03-14] MEDS ORDERED: PRED20 PO ×2 (09:15→09:38)
[2024-03-14] MEDS ORDERED: AZIT250 PO ×2 (09:15→09:38)
[2024-03-14] MEDS ORDERED: Robaxin750 MG PO ×2 (09:15→09:38)
[2024-03-14 09:28] VITALS: BP 101/63
== END 2024-03-14 09:44 | disposition home or self-care (01) ==
LOC: ER 05:09
PROVIDERS: Emergency Medicine; Student in an Organized Health Care Education/Training Program
DX: M62.830 Muscle spasm of back (principal); J44.1 Chronic obstructive pulmonary disease with (acute) exacerbation; I11.0 Hypertensive heart disease with heart failure; I50.9 Heart failure, unspecified; E11.65 Type 2 diabetes mellitus with hyperglycemia; J43.9 Emphysema, unspecified; I25.10 Atherosclerotic heart disease of native coronary artery without angina pectoris; E03.9 Hypothyroidism, unspecified; I25.2 Old myocardial infarction; K21.9 Gastro-esophageal reflux disease without esophagitis; F41.8 Other specified anxiety disorders; Z88.0 Allergy status to penicillin; Z88.6 Allergy status to analgesic agent; Z79.84 Long term (current) use of oral hypoglycemic drugs; Z79.890 Hormone replacement therapy; Z79.82 Long term (current) use of aspirin; Z79.899 Other long term (current) drug therapy; Z87.891 Personal history of nicotine dependence; Z99.81 Dependence on supplemental oxygen
CPT/HCPCS: 0241U; 71045; 73030; 80053; 83735; 83880; 84145; 84484; 85025; 93005; 93010; 94640; 94664; 96374; 99284-25; A9270; J1885; J7512

== ENCOUNTER 2024-03-18 02:43 | Emergency (ER) | payer BC ==
[~2024-03-18] VITALS: Ht 172.7 cm; Wt 86.2 kg
[~2024-03-18 02:43] MED LIST changes: +AZIT250 PO; +PRED20 PO; +Robaxin750 MG PO
[2024-03-18] MEDS ORDERED: MethylPREDNISolone Sod Succ 125 MG Vial IV ONE (02:50)
[2024-03-18] MEDS ORDERED: Albuterol 2.5 MG/3 ML VIAL INH SCH (02:50)
[2024-03-18] MEDS ORDERED: Ondansetron HCl 2 MG / ML 2ML Vial IV ONE (02:55)
[2024-03-18] MEDS ORDERED: FentaNYL Citrate 50 MCG/ML 2 ML Injection IV ONE (02:55)
[2024-03-18 02:58] LABS: BASOPHILS ABSOLUTE AUTO 0.03 K/mm3 (0.00-0.23); BASOPHILS PERCENT AUTO 0 % (0-2); EOSINOPHILS PERCENT AUTO 0 % (0-6); Hematocrit 38.6 % (37.0-53.0); Hemoglobin 12.4 g/dL (13.5-17.5); IMMATURE GRAN ABSOLUTE AUTO 0.04 K/mm3 (0.00-0.10); IMMATURE GRAN PERCENT AUTO 1 % (0-1); LYMPHOCYTES ABSOLUTE AUTO 0.77 K/mm3 (0.84-5.20); LYMPHOCYTES PERCENT AUTO 9 % (21-46); MONOCYTES ABSOLUTE AUTO 0.16 K/mm3 (0.16-1.47); MONOCYTES PERCENT AUTO 2 % (4-13); Mean Corpuscular HGB 25.8 pg (26.0-34.0); Mean Corpuscular HGB Conc 32.1 g/dL (31.5-36.5); Mean Corpuscular Volume 80 fL (80-100); Mean Platelet Volume 9.5 fL (9.1-12.4); NEUTROPHILS PERCENT AUTO 88 % (41-73); Platelet Count 150 K/mm3 (150-400); RDW Coefficient Variation 15.9 % (11.7-14.2); RDW Standard Deviation 46.2 fL (35.1-46.3); Red Blood Cell Count 4.81 M/mm3 (4.30-5.90)
[2024-03-18 03:18] LABS: Albumin, Blood 3.5 g/dL (3.4-5.0); Albumin/Globulin Ratio 0.9 (0.8-1.8); Bilirubin, Total 0.3 mg/dL (0.1-1.0); Bun/Creatinine Ratio 20.3 (12.0-20.0); Creatinine, Blood 0.94 mg/dL (0.60-1.20); Globulin, Blood 3.7 g/dL (2.2-4.0); Potassium, Blood 5.2 mmol/L (3.5-5.5); Total Protein, Blood 7.2 g/dL (6.4-8.2)
[2024-03-18 05:00] VITALS: BP 126/82
== END 2024-03-18 05:48 | disposition home or self-care (01) ==
LOC: ER 02:43
PROVIDERS: Emergency Medicine
DX: J44.1 Chronic obstructive pulmonary disease with (acute) exacerbation (principal); J84.10 Pulmonary fibrosis, unspecified; M25.511 Pain in right shoulder; E03.9 Hypothyroidism, unspecified; I25.2 Old myocardial infarction; E11.9 Type 2 diabetes mellitus without complications; K21.9 Gastro-esophageal reflux disease without esophagitis; I11.0 Hypertensive heart disease with heart failure; I50.9 Heart failure, unspecified; G47.33 Obstructive sleep apnea (adult) (pediatric); Z87.891 Personal history of nicotine dependence; Z86.73 Personal history of transient ischemic attack (TIA), and cerebral infarction without residual deficits; Z79.52 Long term (current) use of systemic steroids; Z79.82 Long term (current) use of aspirin; Z79.51 Long term (current) use of inhaled steroids; Z79.899 Other long term (current) drug therapy; Z88.0 Allergy status to penicillin; Z88.6 Allergy status to analgesic agent
CPT/HCPCS: 71045; 80053; 84484; 85025; 93005; 93010; 94644; 94664; 96374; 96375; 99285-25; J2405; J2919; J3010